=== PATIENT | male | born 1970 | race Two or more races ===

== ENCOUNTER 2016-12-31 08:40 | Emergency (ER) | payer OTHER, MEDICAID ==
[2016-12-31 08:50] VITALS: O2SAT 95
[2016-12-31] MEDS ORDERED: predniSONE 20 MG TAB PO ONE (09:33)
[2016-12-31] MEDS ORDERED: CYCLOBENZAPRINE 10 MG TAB PO ONE (09:33)
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
[2016-12-31 10:10] VITALS: BP 141/88; PULSE 70; RESP 16; TEMP 98.1
== END 2016-12-31 10:30 | disposition home or self-care (01) ==
DX: M54.16 Radiculopathy, lumbar region (principal); M54.41 Lumbago with sciatica, right side; F17.200 Nicotine dependence, unspecified, uncomplicated; X50.0XXA Overexertion from strenuous movement or load, initial encounter; Y92.69 Other specified industrial and construction area as the place of occurrence of the external cause; Y99.0 Civilian activity done for income or pay; Y93.89 Activity, other specified

== ENCOUNTER 2017-11-30 10:27 | Inpatient (IN) | payer MEDICAID, OTHER ==
[2017-11-30] MEDS ORDERED: NS 1,000 ML IV ONE (10:58)
[2017-11-30 11:10] LABS: PLATELET COUNT 392 10^3/uL (150-400)
[2017-11-30] MEDS ORDERED: IOPAMIDOL (ISOVUE-300) 100 ML BTL ONE (11:40)
[2017-11-30 11:53] LABS: INR 1.09 (0.83-1.16); PROTIME(PATIENT) 14.3 SEC (12.0-15.0)
[2017-11-30] MEDS ORDERED: HYDROmorphONE/DILAUDID 2 MG/ML INJ IVP ONE (11:58)
[2017-11-30] MEDS ORDERED: ONDANSETRON 4 MG/2 ML VIAL IVP ONE (11:58)
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
[2017-11-30] MEDS ORDERED: ONDANSETRON DISINTEGRATING 4 MG TAB PO PRN (13:47)
[2017-11-30] MEDS ORDERED: ACETAMINOPHEN 325 MG TAB PO PRN (13:47)
[2017-11-30 14:38] LABS: HEPATITIS A ANTIBODY IGM (BCH) NEGATIVE (NEGATIVE); HEPATITIS B CORE AB IGM NEGATIVE (NEGATIVE); HEPATITIS B SURFACE ANTIGEN NEGATIVE (NEGATIVE); HEPATITIS C ANTIBODY TOTAL NEGATIVE (NEGATIVE)
--- NOTE | 2017-11-30 15:13 | ASMTCMCOM ---
CM Note CM Note Notes: Pt presented to the ED for abdominal and left flank pain x2days. Pt had labs and CT scan completed; results indicate widespread metastatic disease, and thickening in distal esophagus is suspected for primary malignancy. Pt admitted for further diagnostic workup and prognosis. Pt to receive PRBCs. GI consulted in the ED. Pt is an employed, single father of an 18-year-old son and 14-year-old daughter who both attend [employer] (pt states school has been notified and kids are excused from school for a couple of days. Pt states he has a couple of friends locally that may be able to help out w/getting the kids to school, meals, etc while pt is in the hospital and thereafter. Pt reports no family nearby. Mother of children is not involved; pt has full custody of children. Pt is Adventist and states they do not attend a local adventism but would be interested in having Spiritual Services visit with them while he is in the hospital. Depending on overall diagnosis/prognosis, pt may benefit from a Palliative Care and/or Hospice consult. Pt might also be a great candidate for a "[facility]" referral ([phone]); left a voicemail for Moni Michael, Machine Stamper at [facility] requesting referral follow-up and to call back or call the CM. CM to follow. Date Signed: 11/30/2017 03:12 PM Electronically Signed By:Narcisa Jolly RN
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
[2017-11-30] MEDS: HYDROmorphone HCL 0.5 MG/0.5 ML SYR IVP PRN ×2 (16:10→22:44)
[2017-11-30] MEDS ORDERED: NS 1,000 ML IV SCH (16:15)
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
--- NOTE | 2017-11-30 17:42 | PDMN ---
Medical Necessity Medical [facility] DG suspect metastatic malignancy, microcytic anemia, acute abd pain, transaminitis, further eval and tx needed anticipate > 2 MN.
[2017-11-30] MEDS: HYDROmorphONE/DILAUDID 2 MG TAB PO PRN (17:50)
[2017-11-30] MEDS: NICOTINE 21 MG/24 HR PATCH TD SCH (17:51)
[2017-11-30] MEDS: PANTOPRAZOLE SODIUM 40 MG VIAL IVP SCH (22:40)
[2017-12-01] MEDS ORDERED: HYDROmorphone HCL 0.5 MG/0.5 ML SYR IVP PRN (00:10)
[2017-12-01] MEDS: HYDROmorphone HCL 0.5 MG/0.5 ML SYR IVP PRN ×5 (05:38→21:15)
[2017-12-01] MEDS ORDERED: LR 1,000 ML IV ONE (06:39)
[2017-12-01] MEDS ORDERED: PROPOFOL/EMULSION 500 MG/50 ML BOTTLE IV ONE (07:07)
[2017-12-01] MEDS ORDERED: LIDOCAINE 2% 100 MG/5 ML SYR ONE (07:07)
[2017-12-01] MEDS ORDERED: fentaNYL 250 MCG/5 ML INJ ONE (07:07)
[2017-12-01] MEDS ORDERED: MIDAZOLAM 2 MG/2 ML VIAL ONE (07:07)
--- NOTE | 2017-12-01 07:24 | PDANEPAE ---
ANE History of Present Illness GERD, hre for EGD w/bx ANE Past Medical History - Cardiovascular History Hx Hypertension: Yes Hx Arrhythmias: No Hx Chest Pain: No Hx Coronary Artery / Peripheral Vascular Disease: No Hx CHF / Valvular Disease: No Hx Palpitations: No Cardiovascular History Comment: Has had intermittant chest pressure over the last year. 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 - Endocrine History Hx Diabetes: No Hypothyroid: No Hyperthyroid: No Obesity: no - Renal History Hx Renal Disorders: Yes Renal History Comment: Has had stones in the past - Liver History Hx Hepatic Disorders: Yes Hepatic History Comment: Elevated transaminases thought due to suspected tumor burden and metastatic disease - Neurological & Psychiatric Hx Hx Neurological and Psychiatric Disorders: Yes Neurological / Psychiatric History Comment: See above, Jose Sachs, PTSD, Severe Anxiety - Cancer History Hx Cancer: No Cancer History Comment: Esophageal thickening and dysphagia thought to be a cancerous lesion, here for bx, suspected metastatic disease - GI History GERD: moderate Hx Gastrointestinal Disorders: Yes Gastrointestinal History Comment: Esophageal thickening, dysphagia, weight loss of 50# ANE Review of Systems Review of Systems: ANE Patient History - Allergies Allergies/Adverse Reactions: No Known Allergies Allergy (Verified 11/30/17 10:42) - Home Medications Home Medications: Ibuprofen [Motrin (*)] 200 mg PO DAILY 11/30/17 [Last Taken Unknown] Multivitamins [Multivitamin (*)] 1 each PO DAILY 11/30/17 [Last Taken Unknown] - NPO status NPO Since - Liquids (Date): 12/01/17 NPO Since - Liquids (Time): 00:01 NPO Since - Solids (Date): 11/30/17 NPO Since - Solids (Time): 21:00 - Anes Hx Hx Anesthesia Complications (with details): Has prolonged time to emerge and emotional difficulties coming out of anesthesia due to Jose Sachs and PTSD - Smoking Hx Smoking Status: Current every day smoker - Alcohol Use Alcohol Use: Rarely ANE Labs/Vital Signs - Labs Result Diagrams: 12/01/17 03:57 12/01/17 03:57 - Vital Signs Blood Pressure: 121/75 Heart Rate: 86 Respiratory Rate: 18 O2 Sat (%): 93 Height: 190.5 cm Weight: 106.594 kg ANE Physical Exam - Airway Neck exam: FROM Mallampati Score: Class 2 Mouth exam: normal dental/mouth exam - Pulmonary Pulmonary: no respiratory distress - Cardiovascular Cardiovascular: regular rate and rhythym - ASA Status ASA Status: IV (Currently receiving transfusions for acute GIB and suspected cancer) ANE Anesthesia Plan Anesthesia Plan: GA with mask
[2017-12-01] MEDS ORDERED: NALOXONE HCL 0.4 MG/ML INJ IVP PRN (07:46)
[2017-12-01] MEDS ORDERED: MEPERIDINE 25 MG/0.5 ML AMP IVP PRN (07:46)
[2017-12-01] MEDS ORDERED: HYDROmorphONE/DILAUDID 2 MG/ML INJ IVP PRN (07:46)
[2017-12-01] MEDS ORDERED: PROMETHAZINE HCL 25 MG/ML INJ IVP PRN (07:46)
[2017-12-01] MEDS ORDERED: LR 500 ML IV PRN (07:46)
[2017-12-01] MEDS ORDERED: DIAZEPAM 5 MG/ML 1 ML SYR IVP PRN (07:46)
--- NOTE | 2017-12-01 07:52 | SOAPPROG ---
SOAP Progress Note Assessment/Plan: Assessment: 1. Abdominal pain 2. CT with likely metastatic process 3. Esophageal thickening Plan: 1. EGD with MAC 12/01/17 07:50 Subjective: CC: abdominal pain ongoing. No acute overnight events Objective: Vital Signs Temp Pulse Resp BP Pulse Ox 36.5 C 86 18 121/75 H 93 12/01/17 06:29 12/01/17 07:31 12/01/17 07:31 12/01/17 07:31 12/01/17 07:31 Laboratory Results 12/01/17 03:57 12/01/17 03:57 11/30/17 12/01/17 12/02/17 05:59 05:59 05:59 Intake Total 862 Balance 862 PT 14.3 SEC (12.0-15.0) 11/30/17 11:00 INR 1.09 (0.83-1.16) 11/30/17 11:00 Physical Exam - Physical Exam General Appearance: mild distress EENT: normal ENT inspection Neck: supple Respiratory: lungs clear Cardiac/Chest: regular rate, rhythm Abdomen: hepatomegaly, other (Generalized tenderness. ) Skin: normal color, warm/dry ICD10 Worksheet Patient Problems: Problems Problem Status Onset Metastasis of unknown primary Acute
[2017-12-01] MEDS: NICOTINE 21 MG/24 HR PATCH TD SCH (09:32)
[2017-12-01] MEDS: PANTOPRAZOLE SODIUM 40 MG VIAL IVP SCH ×2 (09:32→20:56)
[2017-12-01] MEDS: SODIUM FERRIC GLUCONAT/SUCROSE 125 MG in NS 100 ML IV SCH (10:03)
--- NOTE | 2017-12-01 11:08 | GIREPORT ---
[facility] Surgical Services - Endoscopy Department Patient Name: Piter Shirley Procedure Date: 12/01/2017 6:14 AM Patient Type: Inpatient Attending MD/ ER Physician: Alvin Andrew MD Procedure: Upper GI endoscopy Indications: Dysphagia, Abnormal CT of the GI tract Providers: Alvin Andrew MD Medicines: Propofol per Anesthesia Complications: No immediate complications. Description of Procedure: After obtaining informed consent, the endoscope was passed under direct vision. Throughout the procedure, the patient's blood pressure, pulse, and oxygen saturations were monitored continuously. The Endoscope was intro duced through the mouth, and advanced to the second part of duodenum. The [facility] er GI endoscopy was accomplished without difficulty. The patient tolerated th e procedure well. Findings: A single 12 mm polyp with no bleeding was found 25 cm from the incisors . This looked like a malignant lesion. Biopsies were taken with a cold fo rceps for histology. A large, fungating mass with no bleeding and stigmata of recent bleedin g was found in the lower third of the esophagus, 33 cm from the incisors exte nding into and involving the GE junction at 42 cm. The mass was non-obstructi ng but significantly narrowed the lumen due to tumor ingrowth and is circumferential. Biopsies were taken with a cold forceps for histology. The gastric fundus, gastric body, gastric antrum and pylorus were savanna l. The examined duodenum was normal. Estimated Blood Loss: Estimated blood loss was minimal. Post Op Diagnosis: - Malignant appearing proximal esophageal polyp(s) were found. Biopsied . This is likely part of the same esophageal malignant process but distin ct in location from the GE junction mass. - Likely malignant esophageal tumor was found in the lower third of the esophagus from 33cm to 42 cm involving the GE junction. Biopsied. - Normal gastric fundus, gastric body, antrum and pylorus. - Normal examined duodenum. Recommendation: - Await pathology results. - Refer to an oncologist today. - Mechanical soft diet. - May need to consider esophageal stent placement as part of the care planning for nutritional support. - [facility] patient to [facility] care. - Thank you for allowing me to be involved in the care of your patient. Attending Participation: I personally performed the entire procedure without the assistance of a fellow, resident or surg ical assistant toddler teacher. Alvin Andrew MD Alvin Andrew MD 12/01/2017 8:10:10 AM This report has been signed electronicallyDavid MD Lorrie Number of Addenda: 0 Note Initiated On: 12/01/2017 6:14 AM [email or web address]
[2017-12-01] MEDS: LORazepam 2 MG/ML INJ IVP PRN ×2 (11:48→13:30)
--- NOTE | 2017-12-01 12:31 | ASMTCMCOM ---
CM Note CM Note Notes: Patient plan of care reviewed in team rounds this am. Per the patient he was told he had a stage IV esophageal cancer. He is having a great deal of pain and anxiety. Referral to [facility] for assistance from Dr. Summers for guidance on pain control. Patient expressed wish to fight his disease and is anxious to proceed with treatment. He was meeting with his [place] when [place] and this CM attempted to visit with him. We will return later. He was also visited earlier by two administrative representatives from the school district as the patient has two children currently enrolled and their are concerned for the well being of the family. We will attempt to fill out forms for the "[facility]" program but currently he is overwhelmed by pain and anxiety at this particular time. The patient has a network of friends to help but has no involved significant other to aid with his 14 year old daughter and 18 year old son. CM to follow for needs. Plan: TBD Date Signed: 12/01/2017 12:30 PM Electronically Signed By:Naila Ohara RN
--- NOTE | 2017-12-01 12:55 | ASMTCMCOM ---
CM Note CM Note Notes: Met with patient to discuss [facility] program. He was amenable to filling out paperwork and speaking with someone about their services. I faxed the referral to [facility] ([phone]) and placed the original in his chart. Date Signed: 12/01/2017 12:55 PM Electronically Signed By:Mile Anderson RN
[2017-12-01] MEDS: ONDANSETRON 4 MG/2 ML VIAL IVP PRN (13:14)
[2017-12-01] MEDS ORDERED: BISACODYL 10 MG SUPP PR PRN (13:21)
[2017-12-01] MEDS ORDERED: MAGNESIUM HYDROXIDE 30 ML UDCUP PO PRN (13:21)
[2017-12-01] MEDS ORDERED: LACTULOSE 20 GM/30 ML UDCUP PO PRN (13:21)
[2017-12-01] MEDS ORDERED: POLYETHYLENE GLYCOL 3350 17 GM PKT PO PRN (13:21)
--- NOTE | 2017-12-01 13:36 | POSTANESTH ---
Post Anesthetic Evaluation Cardiovascular Status: Normal, Stable Respiratory Status: Normal, Stable Level of Consciousness/Mental Status: Can Participate in Eval Pain Control: Adequate, Prn Tx Ordered Nausea/Vomiting Control: Adequate, Prn Tx Ordered Complications Possibly Related to Anesthesia: None Noted
[2017-12-01] MEDS: HYDROmorphONE/DILAUDID 2 MG TAB PO PRN ×2 (13:38→18:02)
[2017-12-01] MEDS ORDERED: IOPAMIDOL (ISOVUE-300) 100 ML BTL ONE (14:39)
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
--- NOTE | 2017-12-01 17:36 | HOSPPROG ---
Hospitalist Progress Note Assessment/Plan: Assessment: 47-year-old male presents with new diagnosis likely metastatic esophageal cancer Plan: 1. 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 Acute, new diagnosis, further workup indicated. Evidenced by 2 esophageal lesions on upper endoscopy per my discussion with Dr. 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 Iron deficient anemia. Most likely secondary to slow bleed in the upper GI space from esophageal malignancy with iron studies demonstrating a low saturation, moderately high TIBC -will give IV iron x3 days, he is status post packed red blood cells from last night 3. Transaminitis. Most likely secondary to hepatic Mets, continue monitor comma hepatitis panel negative 4. Nephrolithiasis. Stable, left side, currently asymptomatic Diet. Regular comma NPO in a.m. For port Prophylaxis. High risk patient, SCDs, hold pharmacologic tomorrow Code. Full Disposition. Anticipated discharge uncertain, upgraded to inpatient admission status reasonable medical necessity including his anticipated length stay is greater than 48 hr for new diagnosis of stage IV esophageal cancer requiring ongoing workup as well as IV pain medication management. Subjective: ongoing pain, requiring 1mg IV dilaudid Objective: Vital Signs Temp Pulse Resp BP Pulse Ox 37.1 C 84 16 129/92 H 94 12/01/17 12:40 12/01/17 12:40 12/01/17 12:40 12/01/17 12:40 12/01/17 12:40 Laboratory Results 12/01/17 03:57 12/01/17 03:57 11/30/17 12/01/17 12/02/17 05:59 05:59 05:59 Intake Total 862 425 Output Total 5 Balance 862 420 PT 14.3 SEC (12.0-15.0) 11/30/17 11:00 INR 1.09 (0.83-1.16) 11/30/17 11:00 - Physical Exam Constitutional: appears nourished, uncomfortable, No no apparent distress ( moderate), No not in pain (moderate) Cardiovascular: regular rate and rhythym, no murmur, rub, or gallop, No edema Respiratory: no respiratory distress, no rales or rhonchi, clear to auscultation Gastrointestinal: normoactive bowel sounds, tenderness (mid-epigastric and RUQ) , No guarding, No distension Neurologic: AAOx3, No facial droop Psychiatric: interacting appropriately, not encephalopathic, anxious, flat affect, No agitated ICD10 Worksheet Patient Problems: Problems Problem Status Onset Metastasis of unknown primary Acute
[2017-12-01] MEDS: SENNOSIDES/DOCUSATE SODIUM TAB PO SCH (20:57)
[2017-12-02] MEDS: HYDROmorphone HCL 0.5 MG/0.5 ML SYR IVP PRN ×3 (03:06→10:24)
[2017-12-02] MEDS: PANTOPRAZOLE SODIUM 40 MG VIAL IVP SCH ×2 (08:43→21:12)
[2017-12-02] MEDS: ONDANSETRON 4 MG/2 ML VIAL IVP PRN (08:43)
[2017-12-02] MEDS: NICOTINE 21 MG/24 HR PATCH TD SCH (08:43)
[2017-12-02] MEDS: SENNOSIDES/DOCUSATE SODIUM TAB PO SCH ×2 (09:41→21:12)
[2017-12-02] MEDS: LORazepam 2 MG/ML INJ IVP PRN ×2 (10:24→21:12)
--- NOTE | 2017-12-02 11:08 | GCON ---
PALLIATIVE MEDICINE CONSULT CHIEF COMPLAINT: Dr. Javed Em requests assistance with symptom management as well as goals of care conversation. HISTORY OF PRESENT ILLNESS: This is a 47-year-old gentleman who was admitted to the hospital on November 30 of this year. He had left-sided flank pain and abdominal pain that had been acutely progressing over the prior 48 hours but had been bothering him for many months to up to a year. In addition, in the emergency department, he reported increasing dysphagia over the past month as well. He had lost 50 pounds in the past year. He tells me that his pain is located primarily in his left lower back and wraps around across his entire stomach. He is also experiencing constipation. He had been using stool softeners but after he had bright red blood per rectum with bowel movements, he decided to stop them. He does have pain with defecation as well. He is aware that there is a possibility of hemorrhoids or something else. He states he is still having flatus. With regard to the pain, he has used heating pads at home they have helped a little bit. In addition, he has used CBD products which would take the edge off of his pain. He was using inhaled CBD as the creams and topicals did not work for him. Since being in the hospital, he had pain relief with 2 mg of Dilaudid IV but now he is only getting 1 mg of Dilaudid IV every 2 hours and it barely takes the edge off and does not last 2 hours. His nausea is unpredictable but eating definitely worsens the pain. He can eat a bite and then he needs to vomit. After he vomits, he can eat a little bit more. However, he is basically limited to liquids at this time. He also reports difficulty sleeping. He tried NyQuil at home but had no effect from it. He had some relief again using a CBD product. REVIEW OF SYSTEMS: As indicated in the history of present illness. PAST MEDICAL HISTORY: Per review of computerized medical records includes nephrolithiasis, hypertension, Jose-Sachs, and remote pancreatitis. 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 He has a 32 pack year smoking history. He is a single father of a 14 and an 18-year-old. FAMILY HISTORY: His parents both when he was young. His grandparents raised him. His mother of a CVA and had heart problems as well as gastric and ovarian cancer. His father seemed to have of trauma and also had lung cancer. ALLERGIES: No known drug allergies. MEDICATIONS: Per review of computer include: 1. Tylenol 650 mg every 4 hours as needed. 2. Bisacodyl 10 mg per rectum daily as needed. 3. IV iron daily. 4. Dilaudid 2 to 4 mg every 4 hours as needed. 5. Dilaudid 0.4 to 1 mg IV push every 2 hours as needed. 6. Lactulose 20 g p.o. 3 times daily as needed. 7. Ativan 0.5 to 1 mg IV push every 4 hours as needed. 8. Milk of magnesia 30 cc p.o. daily as needed for constipation. 9. Nicotine 21 mg transdermal daily. 10. Zofran 4 mg IV Push every 4 hours as needed. Can also be given orally. 11. Protonix 40 mg IV twice daily. 12. MiraLAX 17 g daily as needed. 13. Senna 1-2 tablets twice daily scheduled. PHYSICAL EXAM: VITALS: His blood pressure is 134/86. His heart rate is 85. His respiratory rate is 16. He is currently saturating 93% on room air. GENERAL: Alert and oriented x3. Determined affect. Restrains his emotions. HEENT: Normocephalic and atraumatic. Pupils are without icterus. Hearing is intact. CV: Regular rate and rhythm without murmur, rub, or gallop. He has intact pedal pulses. There is no significant lower extremity edema. Extremities are warm. RESPIRATORY: Clear to auscultation bilaterally with adequate effort and expansion. ABDOMEN: Positive bowel sounds. Soft. There is tenderness to palpation in the left upper quadrant and in the left flank. LABORATORY DATA: His hemoglobin was 6.8 on admission and has risen to 7.9,. His creatinine is 0.7. On admission, his iron was 24, TIBC was 410 and his iron saturation was 6. His liver function tests show an AST of 113 and ALT of 78, and an alkaline phosphatase of 206. His albumin is 3. The CT scan showed findings compatible with pulmonary and mediastinal metastatic disease. There was also a masslike concentric thickening of the distal esophagus, possibly representing the primary tumor. EGD showed a 12 mL polyp 25 cm from the incisors that appeared malignant as well as a large fungating mass in the lower third of the esophagus, 33 cm from the incisors extending into and involving the GE junction at 42 cm. While it was nonobstructing, it did narrow the lumen. There were also esophageal polyps that were malignant appearing. ASSESSMENT AND PLAN: This is a 47-year-old gentleman who has evidence of stage IV esophageal cancer that still has pathology pending. He has been seen by Oncology and is eager to pursue aggressive treatment. Active issues include a complex social situation, pain, nausea, constipation, and insomnia. 1. Pain. This is going to be a long-term problem for the patient and unlikely to resolve soon. I would recommend starting a long-acting pain medicine. He will likely need a gastric feeding tube and therefore, long-acting opioids that come in a pill form are unlikely to be viable. Methadone does come in a liquid form. I talked with the patient about the use of methadone and he is agreeable to trying. He is a little hesitant as he states that he has found Percocet and Vicodin stimulating in the past. I did discuss the long half-life of methadone and how slow titration would be necessary in order to achieve a therapeutic level. In the mean time, ongoing use of Dilaudid for breakthrough seems warranted. Given his persistent severe pain on average over the past 24 hours and minimal response of 1 mg of IV Dilaudid, I would increase his IV Dilaudid to 2 mg every 2 hours as needed and increase his oral Dilaudid from 4 mg to 6-8 mg every 4 hours as needed. For starting the methadone, I would start with 5 mg of methadone at bedtime and 2.5 mg of methadone during the day. I encouraged the patient to continue to pursue CBD products as an outpatient as adjunct to his pain relief. 2. Insomnia. This is multifactorial and likely has a component of anxiety with it. He does have Ativan available as needed. In addition to this, I would try trazodone 100 mg p.o. at bedtime as needed for insomnia. 3. Constipation. He is already on scheduled senna and has multiple p.r.n. medications available. I would titrate the senna up in order to ensure a bowel movement every 3 days. 4. Nausea. This happens almost without fail whenever he attempts to eat. I discussed with him prevention is often better than cure. I would advise premedicating with Zofran 4 mg 30 minutes before meals to improve his ability to eat. 5. Social. His children were in the room during the visit. He is currently a single father. His code status is currently listed as full. Given his current goals and the newness of his diagnosis, this does not seem entirely inappropriate. I will follow up with him as an outpatient for ongoing conversations regarding this as well as help him start planning for the possibility of a future for his children who may not include him. Distribution Specialist _ [employer]___ was also present during this visit and she will reach out to the social work staff at [facility] to help the patient access resources available to him and explore his [employer] disability insurance, apply for Medicaid, and apply for disability. Please note that approximately 90 minutes have been spent on this consult including more than 50% of the time in [id number] assessment and counseling of the patient as well as review of hospital records and coordinating care with Dr. Em. Please fax a copy of this note to [facility], Medical Records, Fax: /[phone]/MODL MTDD
[2017-12-02] MEDS ORDERED: MAGNESIUM CITRATE 300 ML BOTTLE PO ONE (11:37)
[2017-12-02] MEDS: SODIUM FERRIC GLUCONAT/SUCROSE 125 MG in NS 100 ML IV SCH (12:29)
[2017-12-02] MEDS: METHADONE HCL 5 MG TAB PO SCH ×2 (12:29→21:12)
--- NOTE | 2017-12-02 12:45 | SOAPPROG ---
SOAP Progress Note Assessment/Plan: Assessment: This is a very pleasant 47-year-old male with a newly diagnosed metastatic cancer likely esophageal primary. 1. Metastatic cancer, likely esophageal: He had upper endoscopy that demonstrated a large mass extending from the distal esophagus down to the GE junction. He has widely metastatic disease including significant hepatic metastasis. He underwent a biopsy with pathology currently pending. We discussed that likely this would be an esophageal or GE junction primary. We discussed that he likely would need palliative chemotherapy. However, I would like 1st pathology be finalized prior to the placement of an [id number]. The main issue at hand is assessing his caloric intake and also pain control. Nutrition consult has been requested. I would assess him for possible G-tube placement if he is unable to meet his caloric needs. -follow-up pathology -will need a follow-up in the [facility] clinic 2. Weight loss: See above. Nutrition has been consult. He is receiving pureed diet. I did discuss with him the possibility of a G-tube. 3. Pain cancer related: He has been transitioned to methadone. He is receiving IV and p.o. Dilaudid. Will assess his total pain needs prior to discharge. All questions were answered. Voices understanding of plan 12/02/17 12:43 Subjective: No acute events overnight. He continues to have significant pain this morning. Receiving IV Dilaudid. Is tolerating a soft pureed diet although is not able to finish his plate today. He otherwise has no other complaints. Objective: Vital Signs Temp Pulse Resp BP Pulse Ox 36.7 C 85 16 134/86 H 93 12/02/17 08:28 12/02/17 08:28 12/02/17 08:28 12/02/17 08:28 12/02/17 08:28 Laboratory Results 12/01/17 03:57 12/01/17 03:57 12/01/17 12/02/17 12/03/17 05:59 05:59 05:59 Intake Total 862 1925 Output Total 5 Balance 862 1920 PT 14.3 SEC (12.0-15.0) 11/30/17 11:00 INR 1.09 (0.83-1.16) 11/30/17 11:00 General: Appears in mild distress due to pain. HEENT: Oropharynx clear extraocular movements are intact Pulmonary: Clear to auscultation bilaterally Cardiovascular: Regular rhythm Abdomen: Tenderness in epigastrium bowel sounds are present Extremities: No cyanosis clubbing or edema Psych: Appropriate affect ICD10 Worksheet Patient Problems: Problems Problem Status Onset Metastasis of unknown primary Acute
--- NOTE | 2017-12-02 12:55 | ASMTCMCOM ---
CM Note CM Note Notes: Patient plan of care reviewed in rounds. He will have a port placed tomorrow. Trial pureed diet to assess caloric intake and potential need for peg tube placement. financial working on medicaid application, [facility] application in process. Patient seen by [facility], Dr. Summers this am to assist with symptom management CM to follow. Plan: TBD Date Signed: 12/02/2017 12:44 PM Electronically Signed By:Naila Ohara RN
[2017-12-02] MEDS: HYDROmorphONE/DILAUDID 2 MG TAB PO PRN ×2 (13:37→18:36)
--- NOTE | 2017-12-02 17:02 | HOSPPROG ---
Hospitalist Progress Note Assessment/Plan: Assessment: 47-year-old male presents with new diagnosis likely metastatic esophageal cancer Plan: 1. 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 Evidenced by 2 esophageal lesions on upper endoscopy, biopsies pending -CT staging of chest w/ pulm mets (personally interpreted) -will await pathology and additional staining, which will determine prognosis and treatment options, will likely require systemic chemo -patient currently electing for aggressive goals of care, supports his two children -currently remains very symptomatic, d/w Dr. Summers, she recommends increasing breakthrough PRN dilaudid + introduction of methadone + AC zofran -will hold on port placement (per onc) until tissue diagnosis confirmed -getting calorie count, encouraging intake -if unable to maintain stable intake, will need G-tube, counseled patient/ family on this 2. Iron deficient anemia. Most likely secondary to slow bleed in the upper GI space from esophageal malignancy with iron studies demonstrating a low saturation, moderately high TIBC -will give IV iron x3 days, he is status post packed red blood cells 3. Transaminitis. Most likely secondary to hepatic Mets, continue monitor, hepatitis panel negative 4. Nephrolithiasis. Stable, left side, currently asymptomatic 5. Anxiety. Acute, situational, started traz HS and PRN ativan Diet. Regular puree + smoothies/supplements Prophylaxis. High risk patient, lovenox 40 Code. Full Disposition. Anticipated discharge uncertain, pending tissue diagnosis, coordinating port/possible G-tube. High level of medical complexity, high risk worsening morbidity 2/2 issues above. Subjective: ongoing abd pain, anxiety Objective: Vital Signs Temp Pulse Resp BP Pulse Ox 37.4 C 93 16 128/80 H 93 12/02/17 15:53 12/02/17 15:53 12/02/17 15:53 12/02/17 15:53 12/02/17 15:53 Laboratory Results 12/01/17 03:57 12/01/17 03:57 12/01/17 12/02/17 12/03/17 05:59 05:59 05:59 Intake Total 862 1925 Output Total 5 Balance 862 1920 PT 14.3 SEC (12.0-15.0) 11/30/17 11:00 INR 1.09 (0.83-1.16) 11/30/17 11:00 - Physical Exam Constitutional: uncomfortable, No no apparent distress (mild), No not in pain ( moderate), No cachectic Cardiovascular: no murmur, rub, or gallop, tachycardia, No systolic murmur, No edema Respiratory: no respiratory distress, no rales or rhonchi, clear to auscultation Gastrointestinal: normoactive bowel sounds, tenderness (mid-epigastic), No guarding, No distension Neurologic: AAOx3 Psychiatric: interacting appropriately, not anxious, not encephalopathic, thought process linear ICD10 Worksheet Patient Problems: Problems Problem Status Onset Metastasis of unknown primary Acute
[2017-12-02] MEDS: ONDANSETRON DISINTEGRATING 4 MG TAB PO SCH (18:36)
[2017-12-02] MEDS: traZODone 100 MG TAB PO SCH (21:12)
--- NOTE | 2017-12-03 09:07 | HOSPPROG ---
Hospitalist Progress Note Assessment/Plan: 1. Likely stage IV esophageal cancer, path from biopsies confirms:Invasive moderately differentiated adenocarcinoma -CT staging of chest w/ pulm mets -patient currently electing for aggressive goals of care, supports his two children -sxs improved today with med changes -discussed care plan with Dr Monzon -consult Dr Pizano for port/feeding tube 2. Iron deficient anemia -IV iron x3 days -s/p 2U PRBC -watch closely 3. Transaminitis. most likely secondary to hepatic mets 4. Nephrolithiasis. Stable, left side, currently asymptomatic 5. Anxiety. Acute, situational, started traz HS and PRN ativan Diet. Regular puree + smoothies/supplements DVT prophy: lovenox FULL CODE NO PCP- needs to establish at discharge (I am happy to see him at [facility]) Disposition: unclear at this time as may initiate chemo here Subjective: Wants to start Tx MICHEL. WOuld like to get port/feeding tube first if possible, then chemo MICHEL. No PCP in [facility], was seeing holistic provider Dr Cheek. Says pain OK with med changes, no n/v/sob currently. Hard to sleep at night, alhaji with awakenings for vitals (discussed on rounds and charger will speak with nt team) Objective: Vital Signs Temp Pulse Resp BP Pulse Ox 96.0 F L 82 14 119/81 H 94 12/03/17 07:36 12/03/17 07:36 12/03/17 07:36 12/03/17 07:36 12/03/17 07:36 Laboratory Results 12/01/17 03:57 12/01/17 03:57 12/01/17 12/02/17 12/03/17 11:59 11:59 11:59 Intake Total 1287 1500 Output Total 5 Balance 1282 1500 PT 14.3 SEC (12.0-15.0) 11/30/17 11:00 INR 1.09 (0.83-1.16) 11/30/17 11:00 - Time Spent With Patient Time Spent with Patient: greater than 35 minutes Time Spent with Patient: Greater than 35 minutes spent on this patients care, greater than 50% of time spent counseling, educating, and coordinating care regarding the above mentioned plan. - Pending Discharge Pending Discharge Within 48 Hours: No - Physical Exam Constitutional: no apparent distress, not in pain Ears, Nose, Mouth, Throat: moist mucous membranes, hearing normal Cardiovascular: regular rate and rhythym, no murmur, rub, or gallop Respiratory: no respiratory distress, no rales or rhonchi Skin: warm Psychiatric: interacting appropriately, not anxious, not encephalopathic, thought process linear ICD10 Worksheet Patient Problems: Problems Problem Status Onset Metastasis of unknown primary Acute
[2017-12-03] MEDS: LORazepam 2 MG/ML INJ IVP PRN (09:15)
[2017-12-03] MEDS: HYDROmorphONE/DILAUDID 2 MG TAB PO PRN ×2 (09:15→18:25)
--- NOTE | 2017-12-03 11:15 | SOAPPROG ---
SOAP Progress Note Assessment/Plan: Assessment: 1. 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 her2 pending 2. Dysphagia and weight loss 3. Iron deficiency anemia We discussed the prognosis. This is an incurable malignancy with a median overall survival of 12 months. Standard chemotherapy is FOLFOX. Can add Herceptin if her2 results are positive. We also discussed a clinical trial of FOLFOX+/-nivolumab that he may be eligible for. He wants to begin as soon as possible and therefore we will forego the trial and treat with FOLFOX. Will talk to surgery re: port and G-tube, to help support nutrition. First cycle to be given in hospital due to patient preference to start immediately - I told him medically it would be OK to wait until the outpatient setting. Plan: - Port - G tube - FOLFOX - continue IV iron - continue PO pain management 60 min spent w/ pt and in coordination of care. 12/03/17 11:12 Subjective: pain better controlled. not able to eat much due to food getting stuck. Objective: NAD Lungs CTAB CV RRR no MGR Abd: +BS NT ND Ext: no edema Neuro: a+ox3 Vital Signs Temp Pulse Resp BP Pulse Ox 35.6 C L 82 14 119/81 H 94 12/03/17 07:36 12/03/17 07:36 12/03/17 07:36 12/03/17 07:36 12/03/17 07:36 Laboratory Results 12/01/17 03:57 12/01/17 03:57 12/02/17 12/03/17 12/04/17 05:59 05:59 05:59 Intake Total 1925 Output Total 5 Balance 1920 PT 14.3 SEC (12.0-15.0) 11/30/17 11:00 INR 1.09 (0.83-1.16) 11/30/17 11:00 ICD10 Worksheet Patient Problems: Problems Problem Status Onset Metastasis of unknown primary Acute
[2017-12-03] MEDS: METHADONE HCL 5 MG TAB PO SCH ×2 (13:29→21:14)
[2017-12-03] MEDS: PANTOPRAZOLE SODIUM 40 MG VIAL IVP SCH ×2 (13:29→21:14)
[2017-12-03] MEDS: ONDANSETRON DISINTEGRATING 4 MG TAB PO SCH ×3 (13:30→18:25)
[2017-12-03] MEDS: SENNOSIDES/DOCUSATE SODIUM TAB PO SCH ×2 (13:31→20:07)
[2017-12-03] MEDS: NICOTINE 21 MG/24 HR PATCH TD SCH (13:31)
[2017-12-03] MEDS: SODIUM FERRIC GLUCONAT/SUCROSE 125 MG in NS 100 ML IV SCH (13:32)
--- NOTE | 2017-12-03 13:42 | ASMTCMCOM ---
CM Note CM Note Notes: Patient seen in interdisciplinary rounds. He may have peg and Mediport placement today with Jerica Velazquez if schedule allows. He is anxious to start his chemotherapy . Financial working on Medicaid. He has community support. "There [facility] Care' pending apporval. Final Plan of care TBD. Plan: TBD Date Signed: 12/03/2017 01:41 PM Electronically Signed By:Naila Ohara RN
[2017-12-03] MEDS ORDERED: LIDOCAINE 1% 300 MG/30 ML SDV ONE (14:02)
[2017-12-03] MEDS ORDERED: BUPIVACAINE 0.5% 30 ML SDV ONE (14:02)
[2017-12-03] MEDS ORDERED: CEFAZOLIN 2 GM/DEXTROSE/100 ML BAG IV ONE (14:21)
--- NOTE | 2017-12-03 14:26 | PDANEPAE ---
ANE History of Present Illness R SC Port Placement and G-tube for metastatic pancreatic Ca ANE Past Medical History - Cardiovascular History Hx Hypertension: Yes Hx Arrhythmias: No Hx Chest Pain: No Hx Coronary Artery / Peripheral Vascular Disease: No Hx CHF / Valvular Disease: No Hx Palpitations: No Cardiovascular History Comment: Has had intermittant chest pressure over the last year. 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 - Endocrine History Hx Diabetes: No Hypothyroid: No Hyperthyroid: No Obesity: no - Renal History Hx Renal Disorders: Yes Renal History Comment: Has had stones in the past - Liver History Hx Hepatic Disorders: Yes Hepatic History Comment: Elevated transaminases thought due to suspected tumor burden and metastatic disease - Neurological & Psychiatric Hx Hx Neurological and Psychiatric Disorders: Yes Neurological / Psychiatric History Comment: See above, Jose Sachs, PTSD, Severe Anxiety - Cancer History Hx Cancer: No Cancer History Comment: Esophageal thickening and dysphagia thought to be a cancerous lesion, here for bx, suspected metastatic disease - GI History GERD: moderate Hx Gastrointestinal Disorders: Yes Gastrointestinal History Comment: Esophageal thickening, dysphagia, weight loss of 50# ANE Review of Systems Review of Systems: - Exercise capacity METS (RN): 3 METS ANE Patient History - Allergies Allergies/Adverse Reactions: No Known Allergies Allergy (Verified 11/30/17 10:42) - Home Medications Home medications: home medication list seen and reviewed Home Medications: Ibuprofen [Motrin (*)] 200 mg PO DAILY 11/30/17 [Last Taken Unknown] Multivitamins [Multivitamin (*)] 1 each PO DAILY 11/30/17 [Last Taken Unknown] - NPO status NPO Status: no food or drink >8 hours NPO Since - Liquids (Date): 12/02/17 NPO Since - Liquids (Time): 00:01 NPO Since - Solids (Date): 12/02/17 NPO Since - Solids (Time): 21:00 - Smoking Hx Smoking Status: Current every day smoker - Alcohol Use Alcohol Use: Rarely - Family Anes Hx Family Anes Hx: none ANE Labs/Vital Signs - Labs Result Diagrams: 12/01/17 03:57 12/01/17 03:57 - Labs - CBC RBC: s/p 2 units PRBC's - Vital Signs Blood Pressure: 119/81 Heart Rate: 80 Respiratory Rate: 16 O2 Sat (%): 94 Height: 190.5 cm Weight: 106.594 kg ANE Physical Exam - Airway Neck exam: FROM Mallampati Score: Class 2 Mouth exam: normal dental/mouth exam - Pulmonary Pulmonary: no respiratory distress - Cardiovascular Cardiovascular: regular rate and rhythym - ASA Status ASA Status: II ANE Anesthesia Plan Anesthesia Plan: general endotracheal anesthesia
[2017-12-03] MEDS ORDERED: ceFAZolin 3 GM in D5W 100 ML IV ONE (14:30)
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
[2017-12-03] MEDS ORDERED: PROPOFOL/EMULSION 500 MG/50 ML BOTTLE IV ONE (14:33)
[2017-12-03] MEDS ORDERED: fentaNYL 100 MCG/2 ML INJ ONE ×3 (14:33→16:33)
[2017-12-03] MEDS ORDERED: ONDANSETRON 4 MG/2 ML VIAL ONE (14:34)
[2017-12-03] MEDS ORDERED: ROCURONIUM 50 MG/5 ML VIAL ONE (14:34)
[2017-12-03] MEDS ORDERED: DEXAMETHASONE 4 MG/ML VIAL ONE ×2 (14:34)
[2017-12-03] MEDS ORDERED: LIDOCAINE 2% 100 MG/5 ML SYR ONE (14:35)
[2017-12-03] MEDS ORDERED: LIDOCAINE HCL 160 MG/4 ML LTA KIT TP ONE (14:35)
[2017-12-03] MEDS ORDERED: ceFAZolin 2 GM/DEXTROSE 100 ML IV ONE (15:00)
[2017-12-03] MEDS ORDERED: LABETALOL HCL 5 MG/ML 20 ML MDV IVP PRN (15:35)
[2017-12-03] MEDS ORDERED: METOCLOPRAMIDE 10 MG/2 ML VIAL IVP PRN (15:35)
[2017-12-03] MEDS ORDERED: HYDROCODONE/APAP 5/325 TAB PO PRN (15:35)
[2017-12-03] MEDS ORDERED: NALOXONE HCL 0.4 MG/ML INJ IVP PRN (15:35)
[2017-12-03] MEDS ORDERED: ACETAMINOPHEN 500 MG TAB PO PRN (15:35)
[2017-12-03] MEDS ORDERED: MEPERIDINE 25 MG/0.5 ML AMP IVP PRN (15:35)
[2017-12-03] MEDS ORDERED: DEXAMETHASONE 4 MG/ML VIAL IVP PRN (15:35)
[2017-12-03] MEDS ORDERED: LR 500 ML IV PRN (15:35)
[2017-12-03] MEDS ORDERED: ONDANSETRON 4 MG/2 ML VIAL IVP PRN (15:35)
[2017-12-03] MEDS ORDERED: PROMETHAZINE HCL 25 MG/ML INJ IVP PRN (15:35)
[2017-12-03] MEDS ORDERED: ALBUTEROL 3 ML DEYVIAL IH PRN (15:35)
[2017-12-03] MEDS ORDERED: PHENYLEPHRINE HCL 100 MCG/ML SYR IVP PRN (15:35)
[2017-12-03] MEDS ORDERED: oxyCODONE IR 5 MG TAB PO PRN (15:35)
[2017-12-03] MEDS ORDERED: GLYCOPYRROLATE 0.2 MG/1 ML VIAL ONE ×2 (15:39)
--- NOTE | 2017-12-03 15:49 | POSTOPPROG ---
Post Op Note Date of Operation: 12/03/17 Surgeon: Bhanu Pizano Nanoscience Technician: none Anesthesiologist: Yon Mcnamara Anesthesia: GET(General Endotracheal) Pre-op Diagnosis: Esophageal cancer Post-op Diagnosis: same Procedure: Port a cath RIJ/PEG placement Findings: port at Rt atrial SVC junction good draw/flush. PEG at 3.5 cm Inf/Abcess present in the surg proc area at time of surgery?: No Complications: none Specimen(s): none
[2017-12-03] MEDS: fentaNYL 100 MCG/2 ML INJ IVP PRN ×3 (16:17→16:35)
[2017-12-03] MEDS ORDERED: ZOLPIDEM TARTRATE 5 MG TAB PO PRN (16:23)
[2017-12-03] MEDS: traZODone 100 MG TAB PO SCH (21:14)
--- NOTE | 2017-12-04 03:46 | GOP ---
DATE OF OPERATION: SURGEON: Bhanu Pizano MD ANESTHESIA: General endotracheal anesthesia was used. ANESTHESIOLOGIST: Yon Mcnamara M.D. PREOPERATIVE DIAGNOSIS: Esophageal cancer. POSTOPERATIVE DIAGNOSIS: Esophageal cancer. PROCEDURE PERFORMED: Port-A-Cath placement, right internal jugular, and percutaneous endoscopic shirley rostomy tube 20-Ethiopian. FINDINGS: A port in good placement at the right atrial superior vena cava junction. There was good blood drawn flush from the port. The other findings are PEG in good position at 3.5 cm from the skin . INDICATIONS: This is a 47-year-old gentleman, who presents to the hospital with esophageal cancer; r equires Port-A-Cath and G-tube access for nutrition and for IV medications. DESCRIPTION OF PROCEDURE: Patient was brought to the operating room after induction of endotracheal anesthesia in supine position. His abdomen was prepped with chlorhexidine and draped sterilely. Kelvin e-out procedure was performed according to institutional standards. Local anesthetic was infused in skin and subcutaneous tissues of the PEG site and endoscopy was initially performed. There was a lar ge circumferential tumor starting at 33 cm from the incisors, which was able to navigate it past to g et into the stomach. The stomach was insufflated with air and an area was chosen at the antrum with easy identification of the light and use of pressure to determine position of placement in the antrum . The skin was anesthetized with local anesthetic. The finder needle was used to identify the place ment and then an Angiocath was used as access to deliver the push-pull technique. The wire was broug ht out through the mouth, secured to the PEG catheter and this was brought back down through the GI t ract and secured in position at 3 cm. The area was checked for guest service representative. Pictures were taken. No bleeding was noted. The port was secured in place without any tension. The stomach was desuffl ated and the port was secured at the skin using gentle traction. Dressings are applied and the patie nt was then repositioned for the port placement. After repeating time-out procedure, his chest and n adwoa are prepped with chlorhexidine and draped sterilely. Time-out procedure was performed. The port site and the neck are anesthetized with local anesthetic under ultrasound guidance. Needle was then placed into the internal jugular vein for access and the access was maintained using wire guide. Th e tunnel was then created from a site that is chosen on the chest to the neck and the catheter was ap propriately truncated. The port site was then developed using electrocautery and the port was secure d laterally using 3-0 Prolene suture. The obturator introducer sheath was placed over the wire. The obturator and wire were removed. The catheter was then placed into the central circulation and the peel-away sheath was peeled away. After confirmation of good placement and gentle curve, the cannula tion site and the port site were closed using 4-0 Monocryl in a two-layer fashion. Steri-Strips and dressings are applied. The port is accessed to allow for any medication administration while he is h ere in the hospital. Needle, instrument and sponge counts were verified to be correct. The patient was awakened, extubated, taken to recovery room in stable condition. Chest x-ray is pending. COMPLICATIONS: There were no complications. /[id number]/MODL
[2017-12-04] MEDS: HYDROmorphONE/DILAUDID 2 MG TAB PO PRN ×2 (06:02→11:08)
[2017-12-04] MEDS: ONDANSETRON DISINTEGRATING 4 MG TAB PO SCH (06:02)
[2017-12-04 06:23] LABS: PLATELET COUNT 339 10^3/uL (150-400)
[2017-12-04] MEDS: METHADONE HCL 5 MG TAB PO SCH ×2 (07:58→21:52)
[2017-12-04] MEDS: HYDROmorphone HCL 0.5 MG/0.5 ML SYR IVP PRN ×4 (08:01→22:01)
[2017-12-04] MEDS: SENNOSIDES/DOCUSATE SODIUM TAB PO SCH ×2 (08:07→21:51)
[2017-12-04] MEDS: NICOTINE 21 MG/24 HR PATCH TD SCH (08:25)
[2017-12-04] MEDS: MAGNESIUM HYDROXIDE 30 ML UDCUP PO SCH (08:25)
[2017-12-04] MEDS: PANTOPRAZOLE SODIUM 40 MG VIAL IVP SCH ×2 (08:25→21:50)
[2017-12-04] MEDS ORDERED: ONDANSETRON DISINTEGRATING 4 MG TAB PO SCH (09:00)
[2017-12-04] MEDS ORDERED: PALONOSETRON HCL 0.25 MG/5 ML VIAL IVP SCH (10:00)
[2017-12-04] MEDS ORDERED: D5W IV SCH ×3 (10:00→10:30)
[2017-12-04] MEDS ORDERED: DEXAMETHASONE IV SCH (10:00)
[2017-12-04] MEDS ORDERED: LEUCOVORIN CALCIUM IV SCH (10:30)
[2017-12-04] MEDS ORDERED: METHADONE HCL 5 MG TAB PO ONE (10:30)
[2017-12-04] MEDS ORDERED: OXALIPLATIN IV SCH (10:30)
--- NOTE | 2017-12-04 11:16 | SOAPPROG ---
SOAP Progress Note Assessment/Plan: Assessment: 1. 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 her2 pending 2. Dysphagia and weight loss 3. Iron deficiency anemia G tube and Port placed. rec: - begin FOLFOX chemo today - continue IV iron - advance G tube feedings to goal - d/c on Tuesday after completion of 48h 5FU infusion. f/u next week in clinic w / me 25 min spent w/ pt and in coordination of care. Subjective: pain somewhat better. eating and drinking OK. Objective: exam: Gen: NAD Lungs CTAB CV RRR no MGR Abd: +BS. G tube site looks good. some tenderness RUQ Ext: 1+ edema Skin: no petechie, purpura Vital Signs Temp Pulse Resp BP Pulse Ox 37.0 C 90 16 119/81 H 94 12/04/17 03:38 12/04/17 03:38 12/04/17 03:38 12/04/17 03:38 12/04/17 03:38 Laboratory Results 12/04/17 06:07 12/04/17 06:07 12/03/17 12/04/17 12/05/17 05:59 05:59 05:59 Intake Total 2250 Output Total 375 400 Balance 1875 -400 PT 14.3 SEC (12.0-15.0) 11/30/17 11:00 INR 1.09 (0.83-1.16) 11/30/17 11:00 ICD10 Worksheet Patient Problems: Problems Problem Status Onset Metastasis of unknown primary Acute
--- NOTE | 2017-12-04 12:27 | HOSPPROG ---
Hospitalist Progress Note Assessment/Plan: 1. Likely stage IV esophageal cancer, path from biopsies confirms:Invasive moderately differentiated adenocarcinoma -CT staging of chest w/ pulm mets -patient currently electing for aggressive goals of care, supports his two children, no family in area but lots of support/friends -discussed care plan with Dr Monzon -start chemo today per Dr Monzon 2. Iron deficient anemia -IV iron x3 days -s/p 2U PRBC -watch closely 3. Transaminitis. most likely secondary to hepatic mets 4. Nephrolithiasis. Stable, left side, currently asymptomatic 5. Anxiety. Acute, situational, started traz HS, ambien prn qhs, and PRN ativan Diet: Regular puree + smoothies/supplements DVT prophy: lovenox FULL CODE NO PCP: needs to establish at discharge (I am happy to see him at [facility]) Disposition: >48 hours because of initiation of chemo Subjective: Says still with some pain with current meds since feeding tube placed. No n/v/SOB. Eating and drinking when I entered room. Objective: Vital Signs Temp Pulse Resp BP Pulse Ox 98.6 F 90 16 119/81 H 94 12/04/17 03:38 12/04/17 03:38 12/04/17 03:38 12/04/17 03:38 12/04/17 03:38 Laboratory Results 12/04/17 06:07 12/04/17 06:07 12/03/17 12/04/17 12/05/17 11:59 11:59 11:59 Intake Total 2250 Output Total 775 Balance 1475 PT 14.3 SEC (12.0-15.0) 11/30/17 11:00 INR 1.09 (0.83-1.16) 11/30/17 11:00 - Physical Exam Constitutional: no apparent distress Ears, Nose, Mouth, Throat: moist mucous membranes, hearing normal Cardiovascular: regular rate and rhythym, no murmur, rub, or gallop Respiratory: no respiratory distress, no rales or rhonchi, clear to auscultation Gastrointestinal: normoactive bowel sounds, tenderness, No guarding, No rebound , No distension Skin: warm Psychiatric: interacting appropriately, not anxious, not encephalopathic, thought process linear ICD10 Worksheet Patient Problems: Problems Problem Status Onset Metastasis of unknown primary Acute
[2017-12-04] MEDS ORDERED: FLUOROURACIL IV SCH (12:30)
[2017-12-04] MEDS: D5W IV SCH (15:12)
[2017-12-04] MEDS: FLUOROURACIL IV SCH (15:12)
[2017-12-04] MEDS: traZODone 100 MG TAB PO SCH (21:52)
[2017-12-04] MEDS: LORazepam 2 MG/ML INJ IVP PRN (22:01)
[2017-12-05 04:40] LABS: PLATELET COUNT 294 10^3/uL (150-400)
[2017-12-05] MEDS: HYDROmorphone HCL 0.5 MG/0.5 ML SYR IVP PRN ×2 (07:36→15:33)
[2017-12-05] MEDS ORDERED: HYDROmorphONE/DILAUDID 1 MG/ML INJ IVP PRN (08:00)
--- NOTE | 2017-12-05 09:31 | HOSPPROG ---
Hospitalist Progress Note Assessment/Plan: 1. Stage IV esophageal adenocarcinoma: New diagnosis. Mets to liver, lungs. - Started FOLFOX 12/04, Dr Monzon following - Met with palliative care, has f/u with Odilia Summers on 12/08 2. Cancer pain - Methadone increased from 2.5/5 to 5 bid last night, will keep at current dose for now - Has IV and PO dilaudid available PRN for breakthrough, bowel regimen 3. Dysphagia - G tube placed, advance TF to goal, regular diet 4. Iron deficiency anemia: Hgb down a touch. s/p 2u prbc this admission - s/p IV iron x3days, monitor H/H daily 5. Anxiety: Acute, situational. Improved. - Trazodone HS, ambien prn qhs, and PRN ativan 7. Transaminitis: 2/2 hepatic mets. Down-trending. No biliary obstruction. 8. Nephrolithiasis. Stable, left side, currently asymptomatic 9. Leukocytosis: Likely 2/2 malignancy. No s/s infection. Diet: Regular smoothies/supplements DVT prophy: lovenox FULL CODE NO PCP: needs to establish at discharge (Dr Tai happy to see him at [facility]) Disposition: Remain inpatient for IV chemotherapy. Plan to dc 12/06 if sxs controlled. Subjective: Still having significant pain, mostly abdominal related. Pain meds seem to help a little but only for a short time. No BM in 3 days. Also burping quite a bit. Frustrated with his liquid diet. Objective: Vital Signs Temp Pulse Resp BP Pulse Ox 37.4 C 112 H 20 127/85 H 92 12/05/17 07:29 12/05/17 07:29 12/05/17 07:29 12/05/17 07:29 12/05/17 07:29 Laboratory Results 12/05/17 03:53 12/05/17 03:53 12/04/17 12/05/17 12/06/17 05:59 05:59 05:59 Intake Total 2250 2950 Output Total 375 2100 Balance 1875 850 PT 14.3 SEC (12.0-15.0) 11/30/17 11:00 INR 1.09 (0.83-1.16) 11/30/17 11:00 - Physical Exam Constitutional: no apparent distress, appears nourished, uncomfortable Eyes: PERRL, anicteric sclera, EOMI Ears, Nose, Mouth, Throat: moist mucous membranes, hearing normal, ears appear normal, no oral mucosal ulcers Cardiovascular: regular rate and rhythym, no murmur, rub, or gallop Respiratory: no respiratory distress, no rales or rhonchi, clear to auscultation Gastrointestinal: other (G tube in place without signs of infection) Skin: other (right chest port without signs of infection) Musculoskeletal: full muscle strength, no muscle tenderness, normal joint ROM Neurologic: AAOx3, sensation intact bilaterally Psychiatric: interacting appropriately, not anxious, not encephalopathic, thought process linear ICD10 Worksheet Patient Problems: Problems Problem Status Onset Metastasis of unknown primary Acute
[2017-12-05] MEDS: NICOTINE 21 MG/24 HR PATCH TD SCH (09:41)
[2017-12-05] MEDS: METHADONE HCL 5 MG TAB PO SCH ×2 (09:42→20:48)
[2017-12-05] MEDS: MAGNESIUM HYDROXIDE 30 ML UDCUP PO SCH (09:44)
[2017-12-05] MEDS: SENNOSIDES/DOCUSATE SODIUM TAB PO SCH ×2 (09:45→20:52)
[2017-12-05] MEDS: PANTOPRAZOLE SODIUM 40 MG VIAL IVP SCH ×2 (09:48→20:48)
[2017-12-05] MEDS ORDERED: SODIUM FERRIC GLUCONAT/SUCROSE 125 MG in NS 100 ML IV SCH (10:00)
[2017-12-05] MEDS: LORazepam 2 MG/ML INJ IVP PRN (11:56)
--- NOTE | 2017-12-05 14:45 | ASMTCMCOM ---
CM Note CM Note Notes: Patient care reviewed in interdisciplinary rounds. Her is likely to dicharge tomorrow. He has had intitial chemotherapy. Peg tube for feeding. [place] [facility]. He is to have Palliative f/u with Dr. Summers on . ain control still challenging. Awaiting to talk to [facility]". [facility] and they will accept patient. Referral to [facility] pending. [facility] pending. Patient needs PCP and Dr. Sarah Tai is willing to accept. CM to follow. Plan: DC home with [facility] services, home infusion and Palliative care. Date Signed: 12/05/2017 02:45 PM Electronically Signed By:Naila Ohara RN
--- NOTE | 2017-12-05 15:33 | SOAPPROG ---
SOAP Progress Note Assessment/Plan: Assessment: Patient is a 39-year-old male with metastatic adenocarcinoma of the esophagus. Problem #1metastatic adenocarcinoma of the esophagus with metastasis to the liver (HER-2 pending) Patient was started on FOLFOX chemotherapy December 04, 2017. He is to be done with his continuous infusion 5-FU tomorrow December 06, 2017. Issues keeping him in the hospital for ongoing pain control and titration of controlled substances. Palliative care is following and making recommendations and will prescribe his outpatient narcotics and benzodiazepines. Plan: 12/05/17 15:26 Subjective: Patient is a bit drowsy given he was just given Ativan for anxiety. He reports continued right upper quadrant abdominal pain with a severity of 7 out of 10 despite methadone and as needed Dilaudid. He has no other pains. He is passing flatus and having bowel movements. He was started on chemotherapy yesterdayFOLFOX. No other acute issues Objective: Vital Signs Temp Pulse Resp BP Pulse Ox 37.4 C 112 H 20 127/85 H 92 12/05/17 12:35 12/05/17 07:29 12/05/17 07:29 12/05/17 07:29 12/05/17 07:29 Laboratory Results 12/05/17 03:53 12/05/17 03:53 12/04/17 12/05/17 12/06/17 05:59 05:59 05:59 Intake Total 2250 2950 Output Total 375 2100 Balance 1875 850 PT 14.3 SEC (12.0-15.0) 11/30/17 11:00 INR 1.09 (0.83-1.16) 11/30/17 11:00 Physical examination: General: No acute distress appearing male, nontoxic appearing HEENT: Pupils equal round reactive to light no scleral icterus or conjunctival pallor is appreciated oral mucosa is moist without any evidence of oral pharyngeal lesions Cardiovascular: Tachycardic rate normal rhythm without rubs thrills gallops or murmurs Chest: Decreased breath sounds heard throughout, clear to percussion throughout Abdomen: Distended, diffusely tender to palpation, with hepatomegaly 4 fingerbreadths from the costal margin anterior axillary line, no splenomegaly is appreciated Extremities: Warm and well perfused 2+ dorsalis pedis and radial pulses bilaterally Neurologic: Somewhat drowsy but arousable oriented x3 ICD10 Worksheet Patient Problems: Problems Problem Status Onset Metastasis of unknown primary Acute
[2017-12-05] MEDS: D5W IV SCH (16:33)
[2017-12-05] MEDS: FLUOROURACIL IV SCH (16:33)
[2017-12-05] MEDS: traZODone 100 MG TAB PO SCH (20:48)
[2017-12-06] MEDS: HYDROmorphone HCL 0.5 MG/0.5 ML SYR IVP PRN ×2 (00:22→11:02)
[2017-12-06] MEDS: LORazepam 2 MG/ML INJ IVP PRN (00:22)
[2017-12-06] MEDS ORDERED: ONDANSETRON DISINTEGRATING 4 MG TAB PO PRN (08:00)
[2017-12-06] MEDS: ONDANSETRON DISINTEGRATING 4 MG TAB PO SCH ×3 (08:51→18:36)
[2017-12-06] MEDS: METHADONE HCL 5 MG TAB PO SCH (09:19)
[2017-12-06] MEDS: NICOTINE 21 MG/24 HR PATCH TD SCH (09:19)
[2017-12-06] MEDS: SENNOSIDES/DOCUSATE SODIUM TAB PO SCH ×2 (09:20→20:56)
[2017-12-06] MEDS: MAGNESIUM HYDROXIDE 30 ML UDCUP PO SCH (09:20)
[2017-12-06] MEDS: PANTOPRAZOLE SODIUM 40 MG VIAL IVP SCH ×2 (09:20→20:55)
[2017-12-06] MEDS: ONDANSETRON 4 MG/2 ML VIAL IVP PRN ×2 (10:56→16:20)
--- NOTE | 2017-12-06 12:59 | ASMTCMCOM ---
CM Note CM Note Notes: CM saw patient prior to interdisciplinary rounds. [facility]" has been attempting to reach out to patient. He admits he has had multiple calls that have gone unanswered due to pain/ nausea. He has a great deal of anxiety regarding his diagnosis and prognosis. He has been approved for the [facility]. Children in room. I spoke to him about the significant role that "[facility]" can play. I will reach out and see if maybe a kiosk sales representative could swing by his room. Chemo to complete infusion today. [facility] stopped by his room as he will have their services for tube feed infusions. Set up with [facility]. Pain a barrier to discharge today. [facility] to make recommendations. CM to follow. Plan: To dc with [facility] and [facility] in addition to [facility]. Date Signed: 12/06/2017 12:49 PM Electronically Signed By:Naila Ohara RN
[2017-12-06] MEDS ORDERED: morphINE 10 MG/0.5 ML UDSYR PO PRN ×2 (13:17→13:22)
--- NOTE | 2017-12-06 13:37 | SOAPPROG ---
SOAP Progress Note Assessment/Plan: Assessment: 47 year old male with metastatic esophageal cancer, now undergoing FOLFOX treatment, c/o epigastric/RUQ pain which has been minimally responsive to current Methadone dosing (5mg PO BID) and PRN Dilaudid. Patient has used Dilaudid sparingly, and pain still ranging 5-9/10, and does not feel that Methadone has been helpful - would like to have a liquid short acting pain medication to take home. Review of CT with IR demonstrates heavy disease burden in liver with likely capsular stretch, but no apparent nerve blocks which would be of benefit. Plan: Discussed with Dr. Downs - would recommend a trial of liquid morphine PO and stopping Methadone based on patient's request. Agree that long acting medications will be limited by his esophageal narrowing. Could also consider PO Dexamethasone to address capsular stretch if Oncology feels patient can safely tolerate while receiving FOLFOX. No apparent IR pain interventions indicated at this time. We would be happy to follow as an outpatient once discharged. 12/06/17 13:30 12/06/17 13:54 Subjective: 47 year old paige with esophageal CA, metastatic to liver and throughout abdomen, now undergoing FOLFOX treatment, seen today for Palliative Care follow up. Piter reports that his most significant issue is pain, focused in his abdomen (and gestures to his RUQ), waxes and wanes but never goes away, ranging 5-9/10, unrelieved with movement, but a bit better with PO intake. Noted no side effects from yesterday's FOLFOX dosing, but today feeling more fatigue and shortness of breath. Moved bowels yesterday, not yet today. Appetite is poor as he's "just not hungry", but able to take protein shakes at times. Pharmacist reports patient took 5mg Methadone PO BID since Tuesday, and has used 2 doses of 0.4mg IV Dilaudid in roxanne last 24 hours, no PO Dilaudid, and two doses of Ativan at 1mg. Piter identifies his other primary issue is anxiety. He is a single parent of two teenagers (present in room at time of my visit), and has been very active to date. Dealing with his current level of function is difficult for him , and anxiety provoking. He gets his primary support from his children, and states while he used to be a sikhism person, he is "not so much" anymore. Found that his meetings with social work have been helpful but still has worries about going home, caring for his kids and being able to work. Objective: Looks stated age, A&OX4, appears uncomfortable at times, speaks in full sentences without outward signs of respiratory distress HEENT - PERRLA, OP mucosa dry, slightly injected but no exudate or plaques, neck supple CHEST - CTA bilaterally, slightly diminished in bases CVS - RRR, no MRG ABD - bowel sounds diminished, G-tube in place, tender to palpation in all quadrants, but most pronounced in epigastrium and RUQ. with sense of RUQ fullness. Could not palpate liver edge due to patient's discomfort, no rebound. EXTS - no CCE NEURO - no focal findings, CN's II-XII grossly intact DERM - limited exam, however no rashes or acute lesion appreciated Vital Signs Temp Pulse Resp BP Pulse Ox 36.6 C 95 16 130/82 H 94 12/06/17 09:00 12/06/17 09:00 12/06/17 09:00 12/06/17 09:00 12/06/17 09:00 Laboratory Results 12/06/17 04:01 12/06/17 04:01 12/05/17 12/06/17 12/07/17 05:59 05:59 05:59 Intake Total 2950 2161 Output Total 2100 Balance 850 2161 PT 14.3 SEC (12.0-15.0) 11/30/17 11:00 INR 1.09 (0.83-1.16) 11/30/17 11:00 CT of abdomen and pelvis reviewed - Extensive liver disease burden, esophageal narrowing - Time Spent With Patient Time Spent With Patient: TIME SPENT - 60 minutes, with greater than 50% of this time spent in patient counseling and coordination of care ICD10 Worksheet Patient Problems: Problems Problem Status Onset Metastasis of unknown primary Acute
--- NOTE | 2017-12-06 15:21 | HOSPPROG ---
Hospitalist Progress Note Assessment/Plan: 1. Stage IV esophageal adenocarcinoma: New diagnosis. Extensive mets to liver, lungs. - Started FOLFOX 12/04, completing 5-FU infusion this afternoon - Plan to follow up with Dr Monzon 2. Cancer pain - Palliative care consulted - Discontinue methadone, IV dilaudid PRN - Start roxanol 5-10mg PRN, IV morphine PRN - Based on above dosing over next 12-24 hours, will plan to transition to [facility] with roxanol for breakthrough - Will discuss starting dexamethasone to help with hepatic capsular stretch with oncology 3. Dysphagia - G tube placed, advance TF to goal, regular diet - Will need to coordinate with material handling warehouse supervisor re: TF plan after discharge 4. Fever: Occurred 12/05. Leukocytosis actually improved. Low concern for infection. - Follow blood cultures 5. Iron deficiency anemia: Hgb down a touch. s/p 2u prbc this admission - s/p IV iron x3days, monitor H/H daily 6. Anxiety: Acute, situational. Improved. - Trazodone HS, ambien prn qhs, and PRN ativan 7. Transaminitis: 2/2 extensive hepatic mets. Slightly up today. Monitor daily, if continues to rise may need to consider biliary stent. 8. Nephrolithiasis. Stable, left side, currently asymptomatic 9. Hyponatremia: Likely hypovolemic. Give IVF. Diet: Regular + smoothies/supplements DVT prophy: lovenox FULL CODE NO PCP: needs to establish at discharge (Dr Tai happy to see him at [facility]) Disposition: Remain inpatient for pain control, unsafe for discharge on current regimen. Has f/u with Odilia Summers of [facility] on 12/08 if discharged by then. Subjective: Lots of pain and nausea overnight through this morning. Symptoms not well controlled. Objective: Vital Signs Temp Pulse Resp BP Pulse Ox 36.6 C 95 16 130/82 H 94 12/06/17 09:00 12/06/17 09:00 12/06/17 09:00 12/06/17 09:00 12/06/17 09:00 Laboratory Results 12/06/17 04:01 12/06/17 04:01 12/05/17 12/06/17 12/07/17 05:59 05:59 05:59 Intake Total 2950 2161 Output Total 2100 Balance 850 2161 PT 14.3 SEC (12.0-15.0) 11/30/17 11:00 INR 1.09 (0.83-1.16) 11/30/17 11:00 - Physical Exam Constitutional: uncomfortable Eyes: PERRL, anicteric sclera, EOMI Ears, Nose, Mouth, Throat: moist mucous membranes, hearing normal, ears appear normal, no oral mucosal ulcers Cardiovascular: regular rate and rhythym, no murmur, rub, or gallop Respiratory: no respiratory distress, no rales or rhonchi, clear to auscultation Gastrointestinal: hepatosplenomegally, distension, other (G tube in place) Skin: no rashes or abrasions, no fluctuance, no induration Musculoskeletal: full muscle strength, no muscle tenderness, normal joint ROM Neurologic: AAOx3, sensation intact bilaterally Psychiatric: interacting appropriately, not anxious, not encephalopathic, thought process linear ICD10 Worksheet Patient Problems: Problems Problem Status Onset Metastasis of unknown primary Acute
--- NOTE | 2017-12-06 17:21 | SOAPPROG ---
JACQUELIN Progress Note Assessment/Plan: Assessment/Plan: Patient is a 39-year-old male with metastatic adenocarcinoma of the esophagus. 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 He is done with his continuous infusion today. Issues keeping him in the hospital for ongoing pain control and titration of controlled substances and tube feeds. Palliative care is following and making recommendations and will prescribe his outpatient narcotics and benzodiazepines. -Follow-up palliative care -recommend bolus plan with nutrition for supplemental nutrition as would be easier as an outpatient -Follow-up with Dr. Monzon as an outpatient Problem #2 - Iron deficiency anemia Patient has received 3 days of 125mg of IV iron. -Can continue IV iron therapy as an outpatient. José Antonio Randolph Subjective: Patient reports pain is relatively well controlled. He had a fever to 38.3 but denies fevers or chills. No new symptoms. Objective: Vital Signs Temp Pulse Resp BP Pulse Ox 36.6 C 92 16 109/58 L 93 12/06/17 15:42 12/06/17 15:42 12/06/17 15:42 12/06/17 15:42 12/06/17 15:42 Laboratory Results 12/06/17 04:01 12/06/17 04:01 12/05/17 12/06/17 12/07/17 05:59 05:59 05:59 Intake Total 2950 2161 Output Total 2100 Balance 850 2161 PT 14.3 SEC (12.0-15.0) 11/30/17 11:00 INR 1.09 (0.83-1.16) 11/30/17 11:00 Physical examination: General: No acute distress appearing male, nontoxic appearing HEENT: Pupils equal round reactive to light no scleral icterus or conjunctival pallor is appreciated oral mucosa is moist without any evidence of oral pharyngeal lesions Cardiovascular: Tachycardic rate normal rhythm without rubs thrills gallops or murmurs Chest: Decreased breath sounds heard throughout, clear to percussion throughout Abdomen: Distended, diffusely tender to palpation, with tender hepatomegaly 4 fingerbreadths from the costal margin anterior axillary line, no splenomegaly is appreciated Extremities: Warm and well perfused 2+ dorsalis pedis and radial pulses bilaterally Neurologic: alert and oriented ICD10 Worksheet Patient Problems: Problems Problem Status Onset Metastasis of unknown primary Acute
[2017-12-06] MEDS: traZODone 100 MG TAB PO SCH (20:55)
[2017-12-06 23:39] LABS: HEPATITIS B CORE AB TOTAL REACTIVE (NEGATIVE)
[2017-12-07 05:44] LABS: HEPATITIS B CORE AB IGM NEGATIVE (NEGATIVE)
[2017-12-07] MEDS ORDERED: DEXAMETHASONE 4 MG TAB PO SCH (09:00)
[2017-12-07] MEDS: PANTOPRAZOLE SODIUM 40 MG VIAL IVP SCH (09:16)
[2017-12-07] MEDS: NICOTINE 21 MG/24 HR PATCH TD SCH (09:17)
[2017-12-07] MEDS: MAGNESIUM HYDROXIDE 30 ML UDCUP PO SCH (09:17)
[2017-12-07] MEDS: ONDANSETRON DISINTEGRATING 4 MG TAB PO SCH ×2 (09:17→11:39)
[2017-12-07] MEDS: SENNOSIDES/DOCUSATE SODIUM TAB PO SCH (09:17)
--- NOTE | 2017-12-07 13:55 | PDIAF ---
- Diagnosis Code Status: Full Code - Medication Management Discharge Medications: Medications to Continue on Transfer Ibuprofen [Motrin (*)] 200 mg PO DAILY 11/30/17 [Last Taken Unknown] Multivitamins [Multivitamin (*)] 1 each PO DAILY 11/30/17 [Last Taken Unknown] Dexamethasone [Decadron 4 MG (*)] 4 mg PO DAILY #7 tab 12/07/17 [Last Taken Unknown] LORazepam [Ativan (*)] 1 mg PO Q6H PRN #10 tab 12/07/17 [Last Taken Unknown] Sennosides/Docusate Sodium [Senokot-S] 1 tab PO BID PRN #10 tab 12/07/17 [Last Taken Unknown] morphINE [Roxanol 10 mg/0.5 ml oral soln (*)] 10 mg PO Q2 PRN #1 btl 12/07/17 [ Last Taken Unknown] traZODone [traZODONE 100MG (*)] 100 mg PO HS PRN #10 tab 12/07/17 [Last Taken Unknown] Discharge Medications: Refer to the Discharge Home Medication list for PRN reason. - Orders Services needed: Home Care, Registered Nurse, Physical Therapy Home Care Face to Face: I certify that this patient was under my care and that I had the required [id number] encounter meeting the encounter requirements on the discharge day. My findings support the fact that the patient is homebound as defined in Home Care Face to Face Continued: CMS Chapter 7 Medicare Benefits Manual 30.1.1 , The condition of the patient is such that there exists a normal inability to leave home and consequently, leaving home would require a considerable and taxing effort. Additional Instructions: Here are your discharge instructions: 1. We have prescribed several new medications and sent them to your pharmacy to help with symptom control: - Morphine liquid solution, also called Roxanol, to help with pain - Ativan to help with nausea and anxiety - Senna/docusate to ensure you are not constipated. You should take this up to twice daily to ensure you have a bowel movement every 2-3 days - Dexamethasone to help with pain around your liver - Trazodone which you can take at night to help get some sleep 2. Please follow up with Dr Odilia Summers tomorrow, 12/08. She will continue to help manage your symptoms moving forward. 3. I have included referral for Dr Monzon (oncology) and Dr Tai (primary care). You should call them within the next few days to schedule an appointment. 4. Our pipeline superintendent division/sort operations supervisor has set you up with [facility] to manage your tube feeds. 5. We are setting you up with a home health nurse as well as physical therapy to ensure things are going smoothly at home. - Follow Up Care Current Providers and Referrals: NONE *PRIMARY CARE P,. [Unknown] - As per Instructions Sarah Tai MD [Medical Doctor] - Alvin Monzon MD [Medical Doctor] -
--- NOTE | 2017-12-07 13:57 | PDIAF ---
- Diagnosis Code Status: Full Code - Medication Management Discharge Medications: Medications to Continue on Transfer Ibuprofen [Motrin (*)] 200 mg PO DAILY 11/30/17 [Last Taken Unknown] Multivitamins [Multivitamin (*)] 1 each PO DAILY 11/30/17 [Last Taken Unknown] Dexamethasone [Decadron 4 MG (*)] 4 mg PO DAILY #7 tab 12/07/17 [Last Taken Unknown] LORazepam [Ativan (*)] 1 mg PO Q6H PRN #10 tab 12/07/17 [Last Taken Unknown] Sennosides/Docusate Sodium [Senokot-S] 1 tab PO BID PRN #10 tab 12/07/17 [Last Taken Unknown] morphINE [Roxanol 10 mg/0.5 ml oral soln (*)] 10 mg PO Q2 PRN #1 btl 12/07/17 [ Last Taken Unknown] traZODone [traZODONE 100MG (*)] 100 mg PO HS PRN #10 tab 12/07/17 [Last Taken Unknown] Discharge Medications: Refer to the Discharge Home Medication list for PRN reason. - Orders Services needed: Home Care, Registered Nurse, Physical Therapy Home Care Face to Face: I certify that this patient was under my care and that I had the required [id number]-[id number] encounter meeting the encounter requirements on the discharge day. My findings support the fact that the patient is homebound as defined in Home Care Face to Face Continued: CMS Chapter 7 Medicare Benefits Manual 30.1.1 , The condition of the patient is such that there exists a normal inability to leave home and consequently, leaving home would require a considerable and taxing effort. Additional Instructions: Here are your discharge instructions: 1. We have prescribed several new medications and sent them to your pharmacy to help with symptom control: - Morphine liquid solution, also called Roxanol, to help with pain - Ativan to help with nausea and anxiety - Senna/docusate to ensure you are not constipated. You should take this up to twice daily to ensure you have a bowel movement every 2-3 days - Dexamethasone to help with pain around your liver - Trazodone which you can take at night to help get some sleep 2. Please follow up with Dr Odilia Summers tomorrow, 12/08. She will continue to help manage your symptoms moving forward. 3. I have included referral for Dr Monzon (oncology) and Dr Tai (primary care). You should call them within the next few days to schedule an appointment. 4. Our public health worker/lance crewmember/mlrs sergeant has set you up with [facility] to manage your tube feeds (see instructions below). 5. We are setting you up with a home health nurse as well as physical therapy to ensure things are going smoothly at home. Nutrition Plan FOOD: Jevity 1.5 will come in 8oz cans. You need 6-7 cans per day to meet your nutrition needs. WATER: You need at least an additional 60oz fluids (water, juice, milk, Gatorade, tea,) per day to stay hydrated. REGIMEN: Take 2-3 cans 3 times per day at 8AM, 12PM, 5PM (ok to adjust times to fit your schedule). Add an additional 1-3 cans (8oz) of water with each meal time if you are not drinking much. If you have an appetite and want to eat, ok to decrease the cans of formula. Recommend always taking a minimum of 4 cans formula each day and 60oz fluid each day. Please email me if you have any questions Reina Snow([email or web address]) [email or web address] - Follow Up Care Current Providers and Referrals: Alvin Monzon MD [Medical Doctor] - Sarah Tai MD [Medical Doctor] - NONE *PRIMARY CARE P,. [Unknown] - As per Instructions
--- NOTE | 2017-12-07 14:16 | ASMTLACE ---
ELIUDE Length of stay for Answers: 7-13 days current admission Acuity / Level of Answers: Yes Care: Did the patient have an inpatient admission? Comorbidities - select Answers: Any tumor (including all that apply lymphoma or leukemia) Palliative care / End of life trajectory Other Notes: Hx of pancreatitis, kidney stones # of Emergency department Answers: 1-2 visits in the last 6 months Social determinants Answers: Mental health diagnosis (anxiety, depression, pers onality disorders, etc.) Score: 17 Date Signed: 12/07/2017 02:16 PM Electronically Signed By:Naila Ohara RN
--- NOTE | 2017-12-07 14:27 | ASMTCMCOM ---
CM Note CM Note Notes: Patient plan of care reviewed in rounds. He will be changed to bolus feeds. He is to have [facility], [facility] as well as [facility]. Contact numbers provided. [facility] to see this pm. No other needs identified at this time. Plan: DC to home with services as outlined above. Date Signed: 12/07/2017 02:24 PM Electronically Signed By:Naila Ohara RN
[2017-12-07 15:10] VITALS: BP 118/77
--- NOTE | 2017-12-07 16:58 | ASDISCHSUM ---
Discharge Information Plan Status:Home with Home Health Medically Cleared to Leave:12/07/2017 Discharge Date:12/07/2017 03:45 PM D/C Disposition:Home Health Service ADT D/C Disposition:Home Health Service Projected Discharge Date:12/03/2017 11:00 AM Transportation at D/C:Family Discharge Delay Reason: Follow-Up Date:12/03/2017 11:00 AM Discharge Slot: Final Diagnosis: Placement Information Referral Type:Palliative Care Referral ID:[id number] Provider Name:[facility] ([facility] Address 1:[address] [place] Address 2: City:[place] Selection Factors: State:[place] Referral Type:Home Infusion Referral ID:[id number] Provider Name:[facility] ([facility]ly [facility]) Address 1:[address] Address 2: City:[place] Selection Factors: State:[place] Referral Type:*Home Health Care Services Referral ID:[id number] Provider Name:[facility] Address 1:[address] Address 2: City:[place] Selection Factors: State:[place] Patient Contact Information Contact Name:KATIE Relationship:Friend Address: City: [facility] Phone: [facility] Code: Email: Financial Information Financial Class:Self-Pay Primary Plan Desc:SELF PAY Primary Plan Number: Secondary Plan Desc: Secondary Plan Number: Assessment Information [facility] CM Progress Note CM Note CM Note Notes: Pt presented to the ED for abdominal and left flank pain x2days. Pt had labs and CT scan completed; results indicate widespread metastatic disease, and thickening in distal esophagus is suspected for primary malignancy. Pt admitted for further diagnostic workup and prognosis. Pt to receive PRBCs. GI consulted in the ED. Pt is an employed, single father of an 18-year-old son and 14-year-old daughter who both attend [employer] (pt states school has been notified and kids are excused from school for a couple of days. Pt states he has a couple of friends locally that may be able to help out w/getting the kids to school, meals, etc while pt is in the hospital and thereafter. Pt reports no family nearby. Mother of children is not involved; pt has full custody of children. Pt is Sikh and states they do not attend a local church but would be interested in having Spiritual Services visit with them while he is in the hospital. Depending on overall diagnosis/prognosis, pt may benefit from a Palliative Care and/or Hospice consult. Pt might also be a great candidate for a "[facility]" referral ([phone]); left a voicemail for Moni Michael, Rural Mail Contractor at [facility] requesting referral follow-up and to call back or call the [facility]. CM to follow. Date Signed: 11/30/2017 03:12 PM Electronically Signed By:Narcisa Jolly RN LACE LACE Length of stay for Answers: 7-13 days current admission Acuity / Level of Answers: Yes Care: Did the patient have an inpatient admission? Comorbidities - select Answers: Any tumor (including all that apply lymphoma or leukemia) Palliative care / End of life trajectory Other Notes: Hx of pancreatitis, kidney stones # of Emergency department Answers: 1-2 visits in the last 6 months Social determinants Answers: Mental health diagnosis (anxiety, depression, pers onality disorders, etc.) Score: 17 Date Signed: 12/07/2017 02:16 PM Electronically Signed By:Naila Ohara RN [facility] Progress Note CM Note CM Note Notes: Patient plan of care reviewed in team rounds this am. Per the patient he was told he had a stage IV esophageal cancer. He is having a great deal of pain and anxiety. Referral to [facility] for assistance from Dr. Summers for guidance on pain control. Patient expressed wish to fight his disease and is anxious to proceed with treatment. He was meeting with his [place] when [place] and this CM attempted to visit with him. We will return later. He was also visited earlier by two administrative representatives from the school district as the patient has two children currently enrolled and their are concerned for the well being of the family. We will attempt to fill out forms for the "There with Care" program but currently he is overwhelmed by pain and anxiety at this particular time. The patient has a network of friends to help but has no involved significant other to aid with his 14 year old daughter and 18 year old son. CM to follow for needs. Plan: TBD Date Signed: 12/01/2017 12:30 PM Electronically Signed By:Naila Ohara RN [facility] Progress Note CM Note CM Note Notes: Met with patient to discuss There with Care program. He was amenable to filling out paperwork and speaking with someone about their services. I faxed the referral to [facility] ([phone]) and placed the original in his chart. Date Signed: 12/01/2017 12:55 PM Electronically Signed By:Mile Anderson RN BC CM Progress Note CM Note CM Note Notes: Patient plan of care reviewed in rounds. He will have a port placed tomorrow. Trial pureed diet to assess caloric intake and potential need for peg tube placement. financial working on medicaid application, There with Care application in process. Patient seen by [facility], Dr. Summers this am to assist with symptom management CM to follow. Plan: TBD Date Signed: 12/02/2017 12:44 PM Electronically Signed By:Naila Ohara RN BC CM Progress Note CM Note CM Note Notes: Patient seen in interdisciplinary rounds. He may have peg and Mediport placement today with Jerica Velazquez if schedule allows. He is anxious to start his chemotherapy . Financial working on Medicaid. He has community support. "There [facility] Care' pending apporval. Final Plan of care TBD. Plan: TBD Date Signed: 12/03/2017 01:41 PM Electronically Signed By:Naila Ohara RN BC CM Progress Note CM Note CM Note Notes: Patient care reviewed in interdisciplinary rounds. Her is likely to dicharge tomorrow. He has had intitial chemotherapy. Peg tube for feeding. [facility]. He is to have Palliative f/u with Dr. Summers on . ain control still challenging. Awaiting to talk to "There with Care". Spoke to [facility] and they will accept patient. Referral to [facility] pending. [employer] pending. Patient needs PCP and Dr. Sarah Tai is willing to accept. CM to follow. Plan: DC home with [facility] services, home infusion and Palliative care. Date Signed: 12/05/2017 02:45 PM Electronically Signed By:Naila Ohara RN [facility] Progress Note CM Note CM Note Notes: CM saw patient prior to interdisciplinary rounds. "There with Care" has been attempting to reach out to patient. He admits he has had multiple calls that have gone unanswered due to pain/ nausea. He has a great deal of anxiety regarding his diagnosis and prognosis. He has been approved for the [employer]. Children in room. I spoke to him about the significant role that "There with Care" can play. I will reach out and see if maybe a dental detail representative could swing by his room. Chemo to complete infusion today. [facility] stopped by his room as he will have their services for tube feed infusions. Set up with [facility]. Pain a barrier to discharge today. [facility] Dr. baker make recommendations. CM to follow. Plan: To dc with Yohana, [facility] and There with care in addition to [facility]. Date Signed: 12/06/2017 12:49 PM Electronically Signed By:Naila Ohara RN [facility] CM Progress Note CM Note CM Note Notes: Patient plan of care reviewed in rounds. He will be changed to bolus feeds. He is to have [facility], [facility] as well as [facility]. Contact numbers provided. [facility] to see this pm. No other needs identified at this time. Plan: DC to home with services as outlined above. Date Signed: 12/07/2017 02:24 PM Electronically Signed By:Naila Ohara RN Intervention Information
--- NOTE | 2017-12-07 17:29 | PDDCSUM ---
Discharge Summary Discharge Summary: Date of Admission: 11/30/2017 Date of Discharge: 12/07/2017 Consultants: oncology, general surgery, palliative care Procedures: gastric tube placement, port placement Discharge Diagnoses: 1. Stage IV esophageal adenocarcinoma 2. Acute pain, anxiety 3. Dysphagia 4. Fever 5. Iron deficiency anemia s/p IV iron 6. Transaminitis 7. Nephrolithiasis, non-obstructive 8. Hyponatremia, mild Brief Hospital Course: 47yo M presented with worsening dysphagia and unintentional weight loss found to have metastatic cancer. EGD biopsies demonstrated moderately invasive esophageal adenocarcinoma and imaging revealed extensive metastases to lungs and liver, to which his transaminitis was attributed. Oncology was consulted and patient wanted aggressive care. A g-tube and port were placed and he was started on FOLFOX on 12/04/2017. He will follow up with Dr Monzon. Symptom management was a bit of a challenge. Palliative care was consulted. He was discharged on dexamethasone, roxanol, and ativan and will follow up with the pall care team. Case also discussed with IR but they did not feel that he had any good targets for nerve blocks. He was taking in some PO but requiring intermittent tube feeds to meet caloric intake and was set up with home health for this. Of note, he is a single father of two children, ages 18 and 14. Medications: Please refer to EMR for complete list. Changes this admission include addition of roxanol, ativan, dexamethasone, bowel regimen. Follow Up Plan: 1. Clinic visit with Dr Odilia Summers on 12/08 2. Clinic visit with Dr Monzon 3. Establish with PCP, referral made to Dr Sarah Tai Physical Exam: Vitals reviewed, afebrile and stable. Alert and oriented without focal neuro deficit. RRR without murmur. Lungs clear. Abdomen with palpable liver, mild tenderness without rebound, g-tube in place. Chest port c/d/i. No rashes.
--- NOTE | 2017-12-07 19:59 | SOAPPROG ---
JACQUELIN Progress Note Assessment/Plan: Assessment/Plan: Patient is a 39-year-old male with metastatic adenocarcinoma of the esophagus. 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 He is done with his continuous infusion today. Issues keeping him in the hospital for ongoing pain control and titration of controlled substances and tube feeds. Palliative care is following and making recommendations and will prescribe his outpatient narcotics and benzodiazepines. Oral morphine seemed helpful to patient and he feels relatively okay with discharge. -Follow-up palliative care -recommend bolus plan with nutrition for supplemental nutrition as would be easier as an outpatient -Follow-up with Dr. Monzon as an outpatient Problem #2 - Iron deficiency anemia Patient has received 3 days of 125mg of IV iron. -Can continue IV iron therapy as an outpatient. José Antonio Randolph 12/07/17 19:58 Subjective: Patient reports feeling better pain benitez with oral morphine. He met with palliative care yesterday. No change in location of character of the pain. No fevers chills or sweats. Have BMs. Objective: Vital Signs Temp Pulse Resp BP Pulse Ox 36.6 C 101 H 20 118/77 95 12/07/17 15:10 12/07/17 15:10 12/07/17 15:10 12/07/17 15:10 12/07/17 15:10 Laboratory Results 12/07/17 05:20 12/07/17 05:20 12/06/17 12/07/17 12/08/17 05:59 05:59 05:59 Intake Total 2161 575 Balance 2161 575 PT 14.3 SEC (12.0-15.0) 11/30/17 11:00 INR 1.09 (0.83-1.16) 11/30/17 11:00 Physical examination: General: No acute distress appearing male, nontoxic appearing HEENT: Pupils equal round reactive to light no scleral icterus or conjunctival pallor is appreciated oral mucosa is moist without any evidence of oral pharyngeal lesions Cardiovascular: Tachycardic rate normal rhythm without rubs thrills gallops or murmurs Chest: Decreased breath sounds heard throughout, clear to percussion throughout Abdomen: Distended, diffusely tender to palpation, with tender hepatomegaly 4 fingerbreadths from the costal margin anterior axillary line, no splenomegaly is appreciated Extremities: Warm and well perfused 2+ dorsalis pedis and radial pulses bilaterally Neurologic: alert and oriented ICD10 Worksheet Patient Problems: Problems Problem Status Onset Metastasis of unknown primary Acute
== END 2017-12-07 15:45 | disposition home health service (06) | DRG 375 ==
LOC: F1N 15:00
PROVIDERS: ADMIT Internal Medicine; ATTEND Internal Medicine
PROC: 30233N1 Transfusion of Nonautologous Red Blood Cells into Peripheral Vein, Percutaneous Approach (ICD-10-PCS; 2017-11-30)
PROC: 02HV33Z Insertion of Infusion Device into Superior Vena Cava, Percutaneous Approach (ICD-10-PCS; principal; 2017-12-03 14:00)
PROC: 0JH60XZ Insertion of Tunneled Vascular Access Device into Chest Subcutaneous Tissue and Fascia, Open Approach (ICD-10-PCS; principal; 2017-12-03 14:00)
PROC: B5181ZA Fluoroscopy of Superior Vena Cava using Low Osmolar Contrast, Guidance (ICD-10-PCS; principal; 2017-12-03 14:00)
PROC: 0DH63UZ Insertion of Feeding Device into Stomach, Percutaneous Approach (ICD-10-PCS; principal; 2017-12-03 14:00)
PROC: 0DB48ZX Excision of Esophagogastric Junction, Via Natural or Artificial Opening Endoscopic, Diagnostic (ICD-10-PCS; 2017-12-03 14:00)
PROC: 0DB58ZX Excision of Esophagus, Via Natural or Artificial Opening Endoscopic, Diagnostic (ICD-10-PCS; 2017-12-03 14:00)
PROC: 3E04305 Introduction of Other Antineoplastic into Central Vein, Percutaneous Approach (ICD-10-PCS; 2017-12-04)
DX: C15.9 Malignant neoplasm of esophagus, unspecified (principal); C78.7 Secondary malignant neoplasm of liver and intrahepatic bile duct; C78.00 Secondary malignant neoplasm of unspecified lung; E87.1 Hypo-osmolality and hyponatremia; G89.3 Neoplasm related pain (acute) (chronic); D50.9 Iron deficiency anemia, unspecified; R74.0 Nonspecific elevation of levels of transaminase and lactic acid dehydrogenase [LDH]; D72.829 Elevated white blood cell count, unspecified; F41.9 Anxiety disorder, unspecified; R13.10 Dysphagia, unspecified; R50.9 Fever, unspecified; R11.0 Nausea; R59.0 Localized enlarged lymph nodes; K59.00 Constipation, unspecified; G47.00 Insomnia, unspecified; R63.4 Abnormal weight loss; I10 Essential (primary) hypertension; F17.210 Nicotine dependence, cigarettes, uncomplicated; N20.0 Calculus of kidney; Z87.442 Personal history of urinary calculi; Z14.8 Genetic carrier of other disease
CPT/HCPCS: 86301-90; 86704-90; 86705-90; 96374; B4087; C1788; G0472; J0640; J0690; J1100; J1170; J1642; J2001; J2060; J2250; J2270; J2405; J2469; J2704; J2916; J3010; J9190; J9263; P9016; Q9967

== ENCOUNTER 2017-12-19 10:57 | Inpatient (IN) | payer SELFPAY ==
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
[2017-12-19] MEDS ORDERED: morphINE 10 MG/0.5 ML UDSYR PO PRN (13:58)
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
[2017-12-19] MEDS ORDERED: D5W IV SCH ×3 (14:30→16:30)
[2017-12-19] MEDS ORDERED: PALONOSETRON HCL 0.25 MG/5 ML VIAL IVP SCH (14:30)
[2017-12-19] MEDS ORDERED: DEXAMETHASONE IV SCH (14:30)
[2017-12-19] MEDS ORDERED: NS IV SCH (15:00)
[2017-12-19] MEDS ORDERED: TRASTUZUMAB IV SCH (15:00)
[2017-12-19] MEDS ORDERED: fentaNYL 12 MCG PATCH TD SCH (15:00)
[2017-12-19] MEDS: HYDROmorphONE/DILAUDID 2 MG TAB PO PRN ×2 (15:03→20:30)
--- NOTE | 2017-12-19 15:25 | PDMN ---
Medical Necessity Medical necessity: MCG : GRG Chemo: 2nd round of Chemo- INPT metastatic gastroesophageal Ca.
--- NOTE | 2017-12-19 15:33 | ECHO ---
[email or web address] [address] [address] Main: [phone] Fax: Transthoracic Echocardiogram Name: GABRIEL BRADLEY MR#: [id number] Study Date: 12/19/2017 Study Time: 12:42 PM Date of : 1970 Age: 47 year(s) Height: 190.5 cm (75 in.) Weight: 97.52 kg (215 lb.) BSA: 2.26 m2 Gender: Male Examination: Limited Echo Indication: ltd echo; evaluation of LVEF prior to chemotherapy Image Quality: Adequate Contrast: Requested by: Dwight Beaver BP: 123 mmHg/73 mmHg Heart Rate: Rhythm: Indication: ltd echo; evaluation of LVEF prior to chemotherapy Procedure Staff Clinical Lab Scientist: Lauren Rowley [facility] Reading Physician: Jamel Bacon MD Requesting Provider: Conclusions: Normal size left ventricle. Mild concentric LV hypertrophy. Normal global systolic LV function. EF is 66 %. No regional wall motion abnormality. Trivial anterior pericardial effusion. No prior study for comparison. Measurements: Chambers Valvular Assessment AV/MV Valvular Assessment TV/PV Normal Normal Normal Name Value Range Name Value Range Name Value Range IVSd (2D): 1.1 cm (0.6 cm-1.1 cm) LVDd (2D): 4.8 cm (4.2 cm-5.9 cm) LVDs (2D): 3.2 cm (2.1 cm-4 cm) LVPWd (2D): 1.1 cm (0.6 cm-1 cm) LVEF (BP): 66 % (>=55 %) Continued Measurements: Findings: Left Ventricle: Normal size left ventricle. Mild concentric LV hypertrophy. Normal global systolic LV function. EF is 66 %. No regional wall motion abnormality. Pericardium: Patient: GABRIEL BRADLEY Study Date: 12/19/2017 Page 1 of 2 12:42 PM Trivial anterior pericardial effusion. (No Signature Object) Patient: GABRIEL BRADLEY Study Date: 12/19/2017 Page 2 of 2 12:42 PM [id number]
[2017-12-19] MEDS: BACITRACIN/POLYMYXIN B SULFATE 28.3 GM TUBE TP SCH ×2 (16:22→22:02)
[2017-12-19] MEDS ORDERED: OXALIPLATIN IV SCH (16:30)
[2017-12-19] MEDS ORDERED: LEUCOVORIN CALCIUM IV SCH (16:30)
[2017-12-19] MEDS ORDERED: FLUOROURACIL IV SCH (18:30)
[2017-12-19] MEDS: oxyCODONE IR 5 MG TAB PO PRN (18:46)
[2017-12-19] MEDS: SENNOSIDES/DOCUSATE SODIUM TAB PO SCH (21:49)
[2017-12-19] MEDS: traZODone 100 MG TAB PO SCH (21:49)
[2017-12-19] MEDS: FLUOROURACIL IV SCH (22:00)
[2017-12-19] MEDS: D5W IV SCH (22:00)
[2017-12-20] MEDS: HYDROmorphONE/DILAUDID 2 MG TAB PO PRN ×5 (00:31→20:36)
[2017-12-20] MEDS: MULTIVITAMINS 1 EACH TAB PO SCH (10:52)
[2017-12-20] MEDS: SENNOSIDES/DOCUSATE SODIUM TAB PO SCH ×2 (10:52→20:36)
[2017-12-20] MEDS: DEXAMETHASONE 4 MG TAB PO SCH (10:53)
[2017-12-20] MEDS: BACITRACIN/POLYMYXIN B SULFATE 28.3 GM TUBE TP SCH ×3 (10:53→22:29)
--- NOTE | 2017-12-20 14:10 | ASMTCMCOM ---
CM Note CM Note Notes: Patient plan of care reviewed in interdisciplinary rounds. He is on day 2 of his chemo therapy infusion. Pain well controlled. Apparently able to eat without difficulty. Likely able to dc home with C and palliative care via [facility]. Plan: As above when medically cleared for discharge. Date Signed: 12/20/2017 02:09 PM Electronically Signed By:Naila Ohara RN
--- NOTE | 2017-12-20 15:25 | HOSPPROG ---
Hospitalist Progress Note Assessment/Plan: DIAGNOSES: * admitted for chemotherapy for esophageal carcinoma * uncontrolled cancer pain Seen by me today on hospitals rounds as well as multidisciplinary rounds on Cancer Care PLANS: Continue current chemotherapy regimen Continue current monitoring for chemo side effects or complications Continue new fentanyl patch at current dose; he may want to use higher doses of Dilaudid during sleep at night and I talked with him in his nurse about 4 mg doses during sleep as necessary SUBJECTIVE: He does feel improved pain control with addition of fentanyl patch to his Dilaudid short-acting He does still however have significant pain at sleep the keeps him awake at night last night So far no side effects of chemo OBJECTIVE Vitals reviewed: Stable without fever Exam: alert oriented skin warm dry color ok resps not labored lungs clear BSs heart regular abd soft nondistended nontender, bowel sounds present limbs warm, no edema iv site ok Laboratory data: Stable metabolic panel Objective: Vital Signs Temp Pulse Resp BP Pulse Ox 36.5 C 75 16 104/64 88 L 12/20/17 11:24 12/20/17 11:24 12/20/17 11:24 12/20/17 11:24 12/20/17 11:24 Laboratory Results 12/20/17 04:35 12/19/17 12/20/17 12/21/17 06:59 06:59 06:59 Intake Total 2262 Balance 2262 - Time Spent With Patient Time Spent with Patient: greater than 35 minutes Time Spent with Patient: Greater than 35 minutes spent on this patients care, greater than 50% of time spent counseling, educating, and coordinating care regarding the above mentioned plan. ICD10 Worksheet Patient Problems: Problems Problem Status Onset Metastasis of unknown primary Acute
--- NOTE | 2017-12-20 17:03 | SOAPPROG ---
SOAP Progress Note Assessment/Plan: Assessment: Piter stuart is a very pleasant 47-year-old male with history of metastatic HER2 positive GE junction tumor who was admitted for FOLFOX. 1. Metastatic GE junction adenocarcinoma, her 2 positive: He is tolerating chemotherapy well with FOLFOX and Herceptin. LVEF was appropriate prior to initiation chemotherapy. 2. Cancer related pain: He is currently on a fentanyl patch alongside short- acting opiates. His pain is under better control. 12/20/17 17:02 Subjective: No acute events overnight. He is tolerating chemotherapy. His pain is under good control. No other issues. Objective: Vital Signs Temp Pulse Resp BP Pulse Ox 36.5 C 69 16 119/71 87 L 12/20/17 16:46 12/20/17 16:46 12/20/17 16:46 12/20/17 16:46 12/20/17 16:46 Laboratory Results 12/20/17 04:35 12/19/17 12/20/17 12/21/17 05:59 05:59 05:59 Intake Total 2262 Balance 2262 General: Pleasant-appearing male appears in no acute distress HEENT: Oropharynx is clear extraocular movements are intact Abdomen: Slight tenderness in the epigastric and no rebound bowel sounds are present Cardiovascular: Regular rate and rhythm Pulmonary: Clear to auscultation bilaterally Extremities: No cyanosis clubbing or edema Neuro: Moving all extremities. ICD10 Worksheet Patient Problems: Problems Problem Status Onset Metastasis of unknown primary Acute
[2017-12-20] MEDS: traZODone 100 MG TAB PO SCH (20:36)
[2017-12-20] MEDS: D5W IV SCH (22:17)
[2017-12-20] MEDS: FLUOROURACIL IV SCH (22:17)
[2017-12-21] MEDS: LORazepam 1 MG TAB PO PRN ×2 (03:08→21:58)
[2017-12-21] MEDS: HYDROmorphONE/DILAUDID 2 MG TAB PO PRN ×4 (03:09→21:58)
[2017-12-21 04:57] LABS: PLATELET COUNT 414 10^3/uL (150-400)
[2017-12-21] MEDS: MULTIVITAMINS 1 EACH TAB PO SCH ×2 (09:12→19:32)
[2017-12-21] MEDS: SENNOSIDES/DOCUSATE SODIUM TAB PO SCH ×3 (09:12→21:58)
[2017-12-21] MEDS: DEXAMETHASONE 4 MG TAB PO SCH ×2 (09:12→19:32)
[2017-12-21] MEDS: BACITRACIN/POLYMYXIN B SULFATE 28.3 GM TUBE TP SCH ×3 (09:13→23:10)
[2017-12-21] MEDS ORDERED: PROMETHAZINE HCL 25 MG TAB PO PRN (09:30)
[2017-12-21] MEDS ORDERED: PROMETHAZINE HCL 25 MG/ML INJ IVP PRN (09:30)
[2017-12-21] MEDS ORDERED: HYDROmorphONE/DILAUDID 2 MG/ML INJ IVP ONE (11:00)
--- NOTE | 2017-12-21 15:00 | HOSPPROG ---
Hospitalist Progress Note Assessment/Plan: DIAGNOSES: * admitted for chemotherapy for esophageal carcinoma * uncontrolled cancer pain Seen by me today on hospitals rounds as well as multidisciplinary rounds on Cancer Care PLANS: Continue current chemotherapy regimen. This is scheduled to end after midnight tonight Continue current monitoring for chemo side effects or complications Increase Fentanyl patch. Start IV Dilaudid for breakthrough. Anticipate discharge tomorrow Subjective: c/o generalized pain. no cp or sob Objective: Vital Signs Temp Pulse Resp BP Pulse Ox 36.7 C 82 16 121/82 H 98 12/21/17 14:29 12/21/17 14:29 12/21/17 14:29 12/21/17 14:29 12/21/17 14:29 Laboratory Results 12/21/17 04:49 12/21/17 04:41 12/20/17 12/21/17 12/22/17 05:59 05:59 05:59 Intake Total 2261 2059 Balance 2261 2059 - Physical Exam Constitutional: no apparent distress Eyes: PERRL Ears, Nose, Mouth, Throat: moist mucous membranes, hearing normal Cardiovascular: regular rate and rhythym, No edema Respiratory: no respiratory distress, no rales or rhonchi, clear to auscultation Gastrointestinal: normoactive bowel sounds, soft, non-tender abdomen Skin: warm Neurologic: AAOx3 Psychiatric: interacting appropriately, not anxious, not encephalopathic Lymph, Heme, Immunologic: No petechiae ICD10 Worksheet Patient Problems: Problems Problem Status Onset Metastasis of unknown primary Acute
--- NOTE | 2017-12-21 15:02 | SOAPPROG ---
SOAP Progress Note Assessment/Plan: Assessment: Piter this is a very pleasant 47-year-old male with history of metastatic HER2 positive GE junction tumor who was admitted for FOLFOX. 1. Metastatic GE junction adenocarcinoma, her 2 positive: He is tolerating chemotherapy well with FOLFOX and Herceptin. LVEF was appropriate prior to initiation chemotherapy. He will be finished chemotherapy tonight at 10:00 p.m.. He can be discharge thereafter. 2. Cancer related pain: He is on MS Contin at home alongside oral Dilaudid as needed. He does have significant breakthrough pain today. I have recommended increasing his MS Contin dose at time of discharge given that he will unlikely be able to pay for a fentanyl patch. 12/21/17 15:01 Subjective: Had significant pain developed in his abdomen this morning. He had some relief with IV Dilaudid. No other issues with chemotherapy. Objective: Vital Signs Temp Pulse Resp BP Pulse Ox 36.7 C 82 16 121/82 H 98 12/21/17 14:29 12/21/17 14:29 12/21/17 14:29 12/21/17 14:29 12/21/17 14:29 Laboratory Results 12/21/17 04:49 12/21/17 04:41 12/20/17 12/21/17 12/22/17 05:59 05:59 05:59 Intake Total 2261 2059 Balance 2261 2059 General: Pleasant, conversant appears in mild distress due to pain HEENT, oropharynx is clear extraocular movements are intact Cardiovascular: Regular rate and rhythm Pulmonary: Clear to auscultation Abdomen: Slight tenderness throughout bowel sounds are present no rebound or guarding Extremities: No cyanosis clubbing or edema Psych: Appropriate affect Neuro: Moving all extremities ICD10 Worksheet Patient Problems: Problems Problem Status Onset Metastasis of unknown primary Acute
[2017-12-21] MEDS: HYDROmorphONE/DILAUDID 1 MG/ML INJ IVP PRN ×2 (15:07→18:46)
[2017-12-21] MEDS ORDERED: fentaNYL 25 MCG PATCH TD SCH (15:15)
--- NOTE | 2017-12-21 15:37 | ASMTCMCOM ---
CM Note CM Note Notes: patient plan of care reviewed in rounds. Receiving chemo through this PM. Pain control is difficult. He has palliative care through [facility]. HHC through [facility]. Will place referrals for f/u. CM to follow for other needs, Spoke with Sindhu Adkins mail weighercasino surveillance officer who saw patient. CM to follow for needs. Plan: As above Date Signed: 12/21/2017 03:37 PM Electronically Signed By:Naila Ohara RN
[2017-12-21] MEDS: traZODone 100 MG TAB PO SCH (21:59)
[2017-12-21] MEDS ORDERED: ONDANSETRON 4 MG/2 ML VIAL IVP SCH (22:00)
[2017-12-21] MEDS: oxyCODONE IR 5 MG TAB PO PRN (23:04)
[2017-12-22] MEDS: oxyCODONE IR 5 MG TAB PO PRN ×2 (05:59→09:00)
[2017-12-22] MEDS: HYDROmorphONE/DILAUDID 2 MG TAB PO PRN ×2 (06:43→14:23)
[2017-12-22] MEDS: DEXAMETHASONE 4 MG TAB PO SCH (08:19)
[2017-12-22] MEDS: SENNOSIDES/DOCUSATE SODIUM TAB PO SCH (08:19)
[2017-12-22] MEDS: MULTIVITAMINS 1 EACH TAB PO SCH (08:19)
[2017-12-22] MEDS: BACITRACIN/POLYMYXIN B SULFATE 28.3 GM TUBE TP SCH (08:20)
[2017-12-22 12:23] VITALS: BP 112/71
--- NOTE | 2017-12-22 12:45 | SOAPPROG ---
SOAP Progress Note Assessment/Plan: Assessment: 47 yo man with metastatic cancer of the GE junction. He continues to have refractory pain. Plan: 1. Pain. Given he felt MS Contin 30 mg PO bid was like taking an aspirin, will increase to 45 mg PO BID. The patient has some 30 mg tablets of MSContin at home. I advised he could take 30 mg PO TID until he ran out and then start the 45 mg PO BID. He can continue to take 2 tablets of dilaudid prn, he has 4 mg tablets at home. Our triage will call on Tuesday. If he is using more than 3 prn doses of dilaudid, will increase MS Contin to 60 mg PO BID. Our triage will call on Tuesday. If he is still using more than 3 prn doses of dilaudid will increase MSContin to 90 mg PO bid (8 mg of PO dilaudid~32 mg of PO morphine). 2. Constipation. Advised he needed to increase his senna to 3 tablets twice daily and take metamucil twice daily as well. 3. Nausea. Reports adequate control. 4. Anxiety. Reports adequate control with prn ativan. 12/22/17 12:41 Subjective: Patient reports ongoig uncontrolled pain. He hasn't felt any change in his pain with the fentanyl patch and is worried about affording it as an outpatient. His appetite remains poor. He is feeling more anxiety.He is becoming more worried about his children and is expressing more openly that he knows he is dying. Objective: Vital Signs Temp Pulse Resp BP Pulse Ox 36.5 C 69 18 112/71 97 12/22/17 12:00 12/22/17 12:00 12/22/17 12:00 12/22/17 12:00 12/22/17 12:00 Laboratory Results 12/21/17 04:49 12/21/17 04:41 12/21/17 12/22/17 12/23/17 05:59 05:59 05:59 Intake Total 2059 3148 Balance 2060 314 - Time Spent With Patient Time Spent With Patient: 20 minutes providing counseling and developing a treatment plan for his pain. ICD10 Worksheet Patient Problems: Problems Problem Status Onset Metastasis of unknown primary Acute
--- NOTE | 2017-12-22 13:28 | PDDCSUM ---
Discharge Summary Discharge Summary: HPI/HOSPITAL COURSE The pt is a 47 yo male with recent diagnosis of esophageal carcinoma admitted for chemotherapy. He was admitted and chemotherapy was provided. He had increased abd pain and this was controlled with adequate pain meds. OP pain meds were increased. He will be d/c home with f/u with Onc. DIAGNOSES: * admitted for chemotherapy for esophageal carcinoma * uncontrolled cancer pain Exam: nad aaox3 rrr cta b meds: see med rec f/u: with Oncology total time spent on d/c is 35 mins. d/w cm, pharmacist, hospice physician, and pt.
--- NOTE | 2017-12-22 13:53 | PDIAF ---
- Diagnosis Diagnosis: esophoageal cancer Code Status: Full Code - Medication Management Discharge Medications: Medications to Continue on Transfer Ibuprofen [Motrin (*)] 200 mg PO DAILY PRN 11/30/17 [Last Taken Unknown] Multivitamins [Multivitamin (*)] 1 each PO DAILY 11/30/17 [Last Taken 12/18/17] Dexamethasone 4 mg PO DAILY #10 tablet 12/07/17 [Last Taken 12/18/17] LORazepam [Ativan (*)] 1 mg PO Q6H PRN #10 tab 12/07/17 [Last Taken 12/18/17] traZODone [traZODONE 100MG (*)] 100 mg PO HS #10 tab 12/07/17 [Last Taken ] HYDROmorphone HCL [Dilaudid 2 mg (*)] 2 mg PO Q3 12/19/17 [Last Taken 12/19/17 09:00] Morphine Sulfate [Ms Contin] 15 mg PO BID #60 tablet.er 12/22/17 [Last Taken Unknown] Morphine Sulfate [Ms Contin] 30 mg PO BID #60 tablet.er 12/22/17 [Last Taken Unknown] Sennosides/Docusate Sodium [Senna-Docusate Sodium Tablet] 1 each PO TID #20 tablet 12/22/17 [Last Taken 12/18/17] Discharge Medications: Refer to the Discharge Home Medication list for PRN reason. - Orders Services needed: Home Care, Registered Nurse, Physical Therapy Home Care Face to Face: I certify that this patient was under my care and that I had the required [id number] encounter meeting the encounter requirements on the discharge day. My findings support the fact that the patient is homebound as defined in Home Care Face to Face Continued: CMS Chapter 7 Medicare Benefits Manual 30.1.1 , The condition of the patient is such that there exists a normal inability to leave home and consequently, leaving home would require a considerable and taxing effort. Isolation Type: Chemotherapy Isolation Diet Recommendation: no restrictions on diet Diet Texture: Regular Texture Diet Additional Instructions: activity: as tolerated f/u: with Oncology in 2 weeks - Follow Up Care Current Providers and Referrals: Sarah Tai MD [Primary Care Provider] -
[2017-12-22] MEDS ORDERED: ONDANSETRON 4 MG/2 ML VIAL IVP SCH (14:00)
--- NOTE | 2017-12-22 14:04 | ASMTLACE ---
LACE Length of stay for Answers: 3 days current admission Acuity / Level of Answers: Yes Care: Did the patient have an inpatient admission? Comorbidities - select Answers: Any tumor (including all that apply lymphoma or leukemia) Other Notes: HTN # of Emergency department Answers: 1-2 visits in the last 6 months Score: 10 Date Signed: 12/22/2017 02:04 PM Electronically Signed By:Naila Ohara RN
--- NOTE | 2017-12-22 14:10 | ASMTCMCOM ---
CM Note CM Note Notes: Patient reviewed in rounds today. He is s/p chemo infusion and medications for pain managed by Dr. Summers, palliative care MD. He is able to discharge home today with resumption of HHC with [facility] and outpatient palliative care from [facility]. He expressed several times that he is dying. He really needs social support in addition to symptom burden management. Final orders to [facility]. CM available should other needs arise/ Plan: Home with [facility] and [facility] palliative. Date Signed: 12/22/2017 02:09 PM Electronically Signed By:Naila Ohara RN
== END 2017-12-22 15:18 | disposition home health service (06) | DRG 847 ==
LOC: F1NOP 10:57 → F1N 11:53
PROVIDERS: ADMIT Internal Medicine; ATTEND Internal Medicine
DX: Z51.11 Encounter for antineoplastic chemotherapy (principal); C15.9 Malignant neoplasm of esophagus, unspecified; C78.7 Secondary malignant neoplasm of liver and intrahepatic bile duct; G89.3 Neoplasm related pain (acute) (chronic); I10 Essential (primary) hypertension; K59.00 Constipation, unspecified; Z80.1 Family history of malignant neoplasm of trachea, bronchus and lung; Z87.891 Personal history of nicotine dependence
CPT/HCPCS: J0640; J1100; J1170; J1642; J2469; J2550; J9190; J9263; J9355

== ENCOUNTER 2018-01-03 09:16 | Inpatient (IN) | payer SELFPAY ==
[2018-01-03] MEDS ORDERED: ALTEPLASE 2 MG VIAL IVP PRN (12:48)
[2018-01-03] MEDS ORDERED: ONDANSETRON 4 MG/2 ML VIAL IVP PRN (13:03)
[2018-01-03] MEDS ORDERED: ACETAMINOPHEN 325 MG TAB PO PRN (13:03)
[2018-01-03] MEDS ORDERED: ONDANSETRON DISINTEGRATING 4 MG TAB PO PRN (13:03)
[2018-01-03] MEDS ORDERED: ZOLPIDEM TARTRATE 5 MG TAB PO PRN (13:03)
[2018-01-03] MEDS ORDERED: IBUPROFEN 200 MG TAB PO PRN (13:05)
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
--- NOTE | 2018-01-03 13:46 | PDMN ---
Medical Necessity Medical necessity: MCG M87 Chemo- A-2 days: recent Dg of esophageal ca admitted for third round of chemo.
--- NOTE | 2018-01-03 14:13 | ASMTCMCOM ---
CM Note CM Note Notes: Chart reviewed. Patient admitted for his 3rd round of chemotherapy, He is known to us. He has an esophageal cancer. He is current with [facility] and [facility]. His son in in his room. CM to follow for needs,. Plan: Dc to home with resumption of services when medically stable. Date Signed: 01/03/2018 02:12 PM Electronically Signed By:Naila Ohara RN
[2018-01-03] MEDS ORDERED: APREPITANT IV SCH (14:30)
[2018-01-03] MEDS ORDERED: NS IV SCH ×2 (14:30→15:00)
[2018-01-03] MEDS ORDERED: PALONOSETRON HCL IV SCH (14:30)
[2018-01-03] MEDS ORDERED: DEXAMETHASONE IV SCH (14:30)
[2018-01-03] MEDS ORDERED: TRASTUZUMAB IV SCH (15:00)
[2018-01-03] MEDS ORDERED: LEUCOVORIN CALCIUM IV SCH (15:30)
[2018-01-03] MEDS ORDERED: D5W IV SCH ×2 (15:30)
[2018-01-03] MEDS ORDERED: OXALIPLATIN IV SCH (15:30)
[2018-01-03] MEDS ORDERED: FLUOROURACIL IV SCH (17:30)
[2018-01-03] MEDS: HYDROmorphONE/DILAUDID 2 MG TAB PO PRN (18:39)
[2018-01-03] MEDS: DEXAMETHASONE 4 MG TAB PO SCH (20:03)
[2018-01-03] MEDS: morphINE SR 15 MG TAB PO SCH (20:04)
[2018-01-03] MEDS: LORazepam 1 MG TAB PO PRN (20:04)
[2018-01-03] MEDS: morphINE SR 30 MG TAB PO SCH (20:04)
[2018-01-03] MEDS: traZODone 100 MG TAB PO SCH (20:07)
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
[2018-01-03] MEDS: D5W IV SCH (22:45)
[2018-01-03] MEDS: FLUOROURACIL IV SCH (22:45)
[2018-01-04 06:04] LABS: PLATELET COUNT 280 10^3/uL (150-400)
[2018-01-04] MEDS: MULTIVITAMINS 1 EACH TAB PO SCH (09:22)
[2018-01-04] MEDS: morphINE SR 30 MG TAB PO SCH ×2 (09:22→21:42)
[2018-01-04] MEDS: morphINE SR 15 MG TAB PO SCH ×2 (09:22→21:41)
[2018-01-04] MEDS: DEXAMETHASONE 4 MG TAB PO SCH ×2 (09:22→21:41)
[2018-01-04] MEDS: LORazepam 1 MG TAB PO PRN (09:25)
[2018-01-04] MEDS: HYDROmorphONE/DILAUDID 2 MG TAB PO PRN ×2 (09:25→17:31)
[2018-01-04] MEDS: SENNOSIDES/DOCUSATE SODIUM TAB PO SCH (09:32)
--- NOTE | 2018-01-04 10:08 | SOAPPROG ---
SOAP Progress Note Assessment/Plan: Assessment: 1. metastatic ca, GE junction, on folfox 2. anemia, related to chemo and chronic disease, iron stores replete Plan:Continue chemo today, discussed drop in cea with pt 01/04/18 10:05 01/04/18 10:07 01/04/18 10:08 Subjective: A bit anxious, worried about his children Objective: Vital Signs Temp Pulse Resp BP Pulse Ox 97.4 F 53 L 14 99/69 L 97 01/04/18 07:34 01/04/18 07:34 01/04/18 07:34 01/04/18 07:34 01/04/18 07:34 Laboratory Results 01/04/18 05:57 01/04/18 05:57 01/03/18 01/04/18 01/05/18 05:59 05:59 05:59 Intake Total 2476 Output Total 1 Balance 2475 Physical Exam - Physical Exam General Appearance: alert, no apparent distress Respiratory: lungs clear, normal breath sounds Cardiac/Chest: normal peripheral pulses, regular rate, rhythm Abdomen: normal bowel sounds, non-tender, other (G tube) ICD10 Worksheet Patient Problems: Problems Problem Status Onset Metastasis of unknown primary Acute
--- NOTE | 2018-01-04 13:22 | ASMTCMCOM ---
CM Note CM Note Notes: Plan of care reviewed in rounds. Met with patient who reports he and his ex have began conversing about his prognosis and care of their children. He asks that I may provide a meal card for his son who visits him daily. He assured me he returned a call to [facility]". CM to follow for needs. Plan: likely to return home with [facility] when medically cleared for discharge. Date Signed: 01/04/2018 01:21 PM Electronically Signed By:Naila Ohara RN
--- NOTE | 2018-01-04 16:43 | HOSPPROG ---
Hospitalist Progress Note Assessment/Plan: 47yo M with recently diagnosed esophageal adenocarcinoma with liver mets here for chemotherapy. #Esophageal adenocarcinoma: Followed by Dr Camacho and pall care - to complete 48 hours of 5-FU 01/05 - continue dexamethasone #Cancer related pain: - continue home MS londono and dialudid PRN for breakthrough - ativan PRN #Dysphagia: minimal - not using G-tube, taking PO #Hyponatremia: likely hypovolemic - IVF #Anemia: microcytic, iron stores are replete #Leukocytosis: likely reactive in setting of malignancy #Advanced directive: apparently none on file, pall care to meet and discuss with him Dispo: remain inpatient for completion of IV chemotherapy, hopefully discharge tomorrow afternoon once this is complete Subjective: Doing well. Occasional intense pain but overall moderate pain control. No n/v/d. Appetite good. Objective: Vital Signs Temp Pulse Resp BP Pulse Ox 37.1 C 56 L 16 116/77 98 01/04/18 12:00 01/04/18 12:00 01/04/18 12:00 01/04/18 12:00 01/04/18 12:00 Laboratory Results 01/04/18 05:57 01/04/18 05:57 01/03/18 01/04/18 01/05/18 05:59 05:59 05:59 Intake Total 2476 Output Total 1 Balance 2475 - Physical Exam Constitutional: no apparent distress, appears nourished, not in pain Eyes: PERRL, anicteric sclera, EOMI Ears, Nose, Mouth, Throat: moist mucous membranes, hearing normal, ears appear normal, no oral mucosal ulcers Cardiovascular: regular rate and rhythym, no murmur, rub, or gallop Respiratory: no respiratory distress, no rales or rhonchi, clear to auscultation Gastrointestinal: normoactive bowel sounds, soft, non-tender abdomen, no palpable masses, other (G tube site c/d/i) Genitourinary: no bladder fullness, no bladder tenderness, no renal bruits Skin: other (right chest port c/d/i) Musculoskeletal: full muscle strength, no muscle tenderness, normal joint ROM Neurologic: AAOx3, sensation intact bilaterally Psychiatric: interacting appropriately, not anxious, not encephalopathic, thought process linear ICD10 Worksheet Patient Problems: Problems Problem Status Onset Metastasis of unknown primary Acute
[2018-01-04] MEDS: traZODone 100 MG TAB PO SCH (21:41)
[2018-01-04] MEDS: FLUOROURACIL IV SCH (22:44)
[2018-01-04] MEDS: D5W IV SCH (22:44)
[2018-01-05] MEDS: MULTIVITAMINS 1 EACH TAB PO SCH (08:26)
[2018-01-05] MEDS: morphINE SR 15 MG TAB PO SCH ×2 (08:26→22:04)
[2018-01-05] MEDS: DEXAMETHASONE 4 MG TAB PO SCH ×2 (08:27→22:04)
[2018-01-05] MEDS: SENNOSIDES/DOCUSATE SODIUM TAB PO SCH (08:27)
[2018-01-05] MEDS: morphINE SR 30 MG TAB PO SCH ×2 (08:27→22:04)
[2018-01-05] MEDS: HYDROmorphONE/DILAUDID 2 MG TAB PO PRN ×2 (08:41→16:45)
--- NOTE | 2018-01-05 10:43 | SOAPPROG ---
SOAP Progress Note Assessment/Plan: Assessment: 1. metastatic ca, GE junction, on folfox 2. anemia, related to chemo and chronic disease, iron stores replete Plan:Finish chemo today, follow up scheduled with Dr Monzon 01/1701/04/18 10:05 01/04/18 10:07 01/04/18 10:08 01/05/18 10:42 Subjective: Feels ok Objective: Vital Signs Temp Pulse Resp BP Pulse Ox 97.7 F 57 L 16 99/62 L 95 01/05/18 08:35 01/05/18 08:35 01/05/18 08:35 01/05/18 08:35 01/05/18 08:35 Laboratory Results 01/05/18 05:47 01/05/18 06:08 01/04/18 01/05/18 01/06/18 05:59 05:59 05:59 Intake Total 0438 1795 Output Total 1 Balance 5330 1793 ICD10 Worksheet Patient Problems: Problems Problem Status Onset Metastasis of unknown primary Acute
--- NOTE | 2018-01-05 14:35 | ASMTCMCOM ---
CM Note CM Note Notes: Patient plan of care reviewed in rounds. He is finishing his chemotherapy later today. He want's to dc to home after infusion is complete. Alerted HHC services and asked physician for interagency order for resumption of care. CM avaiable should other needs arise Plan: [facility] Date Signed: 01/05/2018 02:34 PM Electronically Signed By:Naila Ohara RN
--- NOTE | 2018-01-05 15:46 | PDDCSUM ---
Discharge Summary Discharge Summary: Date of Admission: 01/03/2018 Date of Discharge: 01/05/2018 Consultants: oncology (Dr Adames) Studies: none Discharge Diagnoses: 1. Need for IV chemotherapy 2. Metastatic esophageal adenocarcinoma 3. Cancer related pain 4. Hyponatremia 5. Microcytic anemia Brief Hospital Course: 47yo M with recently diagnosed esophageal adenocarcinoma with liver mets here for chemotherapy. Tolerated 48 hour 5-FU infusion well. Remained grossly asymptomatic and is not having any dysphagia. Did not make any medication changes. Of note, he is tolerating PO and not using his G tube. He was slightly hyponatremic which is likely due to poor PO but this has been stable. He also has a stable microcytic anemia with replete iron stores; did not require transfusion. Medications: Please refer to EMR. No changes this admission. Follow Up Plan: 1. To see Dr Monzon in 2 weeks 2. Continue following with palliative care Physical Exam: Vitals reviewed, stable and afebrile. Alert and oriented, rrr without m/r/g, lungs clear, abdomen soft and nontender with G-tube in place, no rashes or oral lesions.
[2018-01-05 22:03] VITALS: BP 102/56
[2018-01-05] MEDS: traZODone 100 MG TAB PO SCH (22:05)
== END 2018-01-05 23:05 | disposition home or self-care (01) | DRG 847 ==
LOC: F1N 09:18
PROVIDERS: ADMIT Internal Medicine Hematology & Oncology; ATTEND Internal Medicine
DX: Z51.11 Encounter for antineoplastic chemotherapy (principal); C15.9 Malignant neoplasm of esophagus, unspecified; C78.7 Secondary malignant neoplasm of liver and intrahepatic bile duct; G89.3 Neoplasm related pain (acute) (chronic); D64.81 Anemia due to antineoplastic chemotherapy; D63.8 Anemia in other chronic diseases classified elsewhere; I10 Essential (primary) hypertension; Z87.442 Personal history of urinary calculi; Z87.891 Personal history of nicotine dependence
CPT/HCPCS: C9463; J0640; J1100; J1642; J2469; J2997; J9190; J9263; J9355

== ENCOUNTER → 2018-04-05 | Outpatient (CLI) | payer MEDICAID | LOC: FIMAGING 08:18 ==

== ENCOUNTER 2018-07-22 12:27 | Outpatient (CLI) | payer MEDICAID ==
[2018-07-22] MEDS: diphenhydrAMINE 25 MG CAP PO ONE (12:45)
[2018-07-22] MEDS: ACETAMINOPHEN 325 MG TAB PO ONE (12:45)
== END 2018-07-22 16:20 | disposition home or self-care (01) ==
LOC: FOBOP 12:27
PROVIDERS: ATTEND Internal Medicine Hematology & Oncology
PROC: 30233N1 Transfusion of Nonautologous Red Blood Cells into Peripheral Vein, Percutaneous Approach (ICD-10-PCS; principal; 2018-07-22)
DX: C15.9 Malignant neoplasm of esophagus, unspecified (principal)
CPT/HCPCS: 36430; P9016; J1642